=== PATIENT | female | born 1980 | race Caucasian/White ===

== ENCOUNTER → 2017-09-03 09:22 | Outpatient (CLI) | payer OTHER, SELFPAY ==
[2017-09-03 09:24] LABS: Adenovirus,PCR Not Detected (NotDetected); Bordetella Pertussis Not Detected (NotDetected); Chlamydophila Pneumoniae, PCR Not Detected (NotDetected); Coronavirus 229E Not Detected (NotDetected); Coronavirus NL63 Not Detected (NotDetected); Coronavirus OC43 Not Detected (NotDetected); Coronovirus HKU1,PCR Not Detected (NotDetected); Human Metapneumovirus Not Detected (NotDetected); Influenza A, PCR Not Detected (NotDetected); Influenza AH1, 2009 Not Detected (NotDetected); Influenza AH1, PCR Not Detected (NotDetected); Influenza AH3,PCR Not Detected (NotDetected); Influenza B, PCR Not Detected (NotDetected); Mycoplasma Pneumoniae, PCR Not Detected (NotDected); Parainfluenza 1, PCR Not Detected (NotDetected); Parainfluenza 2, PCR Not Detected (NotDetected); Parainfluenza 3, PCR Not Detected (NotDetected); Parainfluenza 4, PCR Not Detected (NotDetected); Respiratory Syncytial Virus Not Detected (NotDetected)
[2017-09-03 15:28] LABS: Rhinovirus/Enterovirus Detected (NotDetected)
== END ==
PROVIDERS: Visit Provider Nurse Practitioner Family
DX: R50.9 Fever, unspecified (principal); R05 Cough; J32.9 Chronic sinusitis, unspecified
CPT/HCPCS: 87486; 87581; 87633; 87798

== ENCOUNTER → 2018-03-06 09:28 | Outpatient (CLI) | payer OTHER, SELFPAY ==
--- NOTE | 2018-03-06 09:37 | XR_ITS ---
XR chest 2V HISTORY: Wheezing ITS.REASON: WHEEZES ORDERING PHYSICIAN: Renetta Valiente PATIENT AGE: 37 years COMPARISON: None FINDINGS: The cardiomediastinal silhouette and pulmonary vascularity are within normal limits. The lungs are clear without infiltrates, suspicious nodules, or pleural effusions. No acute bony abnormalities. IMPRESSION: Negative chest, no acute finding
[2018-03-06 10:08] LABS: Adenovirus,PCR Not Detected (NotDetected); Bordetella Pertussis Not Detected (NotDetected); Chlamydophila Pneumoniae, PCR Not Detected (NotDetected); Coronavirus 229E Not Detected (NotDetected); Coronavirus NL63 Not Detected (NotDetected); Coronavirus OC43 Not Detected (NotDetected); Coronovirus HKU1,PCR Not Detected (NotDetected); Human Metapneumovirus Not Detected (NotDetected); Influenza A, PCR Not Detected (NotDetected); Influenza AH1, 2009 Not Detected (NotDetected); Influenza AH1, PCR Not Detected (NotDetected); Influenza AH3,PCR Not Detected (NotDetected); Influenza B, PCR Not Detected (NotDetected); Mycoplasma Pneumoniae, PCR Not Detected (NotDected); Parainfluenza 1, PCR Not Detected (NotDetected); Parainfluenza 2, PCR Not Detected (NotDetected); Parainfluenza 3, PCR Not Detected (NotDetected); Parainfluenza 4, PCR Not Detected (NotDetected); Respiratory Syncytial Virus Not Detected (NotDetected); Rhinovirus/Enterovirus Not Detected (NotDetected)
== END ==
PROVIDERS: PCP Nurse Practitioner Family; Visit Provider Nurse Practitioner Family
DX: R06.2 Wheezing (principal)
CPT/HCPCS: 71046; 87486; 87581; 87633; 87798

== ENCOUNTER 2020-11-02 13:54 | Emergency (ER) | payer OTHER, SELFPAY ==
[2020-11-02] VITALS (9 sets, daily range): BP systolic 120–149; BP diastolic 65–81; PULSE 74–95; RESP 16–20; TEMP 36.6–36.8; O2SAT 96–98; BMI 36.8; BMI 36.5
--- NOTE | 2020-11-02 14:20 | HMH.EDUTC ---
[facility] – [place] Disposition Clinical Impression: Dehydration Syncope Qualifiers: Syncope type: unspecified Qualified Code(s): R55 - Syncope and collapse Disposition: Home, Self-Care Condition on Discharge: Good Instructions: DI for Syncope in Adults (Fainting) Additional Instructions: You have been evaluated for syncopal episode. Please stay hydrated. Eat a balanced diet. Follow-up with your primary care doctor. You may need to wear a Holter monitor. Return to the emergency department at once if you have any new or worsening symptoms, chest pain, palpitations, other concerns Referrals: Belkis Kwok [Primary Care Provider] - Time of Disposition: 14:27 Medical Decision Making - Jerald Inquiry Pt receiving controlled substance: No Jerald was queried for this patient: No Vital Signs: 11/02/20 13:55 11/02/20 14:25 11/02/20 14:35 Temperature 98.3 F 97.9 F Temperature Source Oral Oral Pulse Rate 86 Pulse Rate [Right Brachial] 89 95 H Respiratory Rate 19 18 20 Blood Pressure 133/74 Blood Pressure [Right Arm] 149/81 H 133/74 Blood Pressure Mean [Right Arm] 103 93 Blood Pressure Source Blood Pressure Source [Right Arm] Automatic Cuff Automatic Cuff Blood Pressure Position Blood Pressure Position [Right Arm] Sitting Sitting 02 Sat by Pulse Oximetry 98 96 97 Oxygen Delivery Method Room Air Room Air 11/02/20 15:00 11/02/20 15:30 11/02/20 16:00 Temperature Temperature Source Pulse Rate 84 82 84 Pulse Rate [Right Brachial] Respiratory Rate 18 18 18 Blood Pressure 122/68 120/65 125/68 Blood Pressure [Right Arm] Blood Pressure Mean [Right Arm] Blood Pressure Source Blood Pressure Source [Right Arm] Blood Pressure Position Blood Pressure Position [Right Arm] 02 Sat by Pulse Oximetry 96 97 96 Oxygen Delivery Method 11/02/20 16:30 11/02/20 17:10 11/02/20 17:21 Temperature 98.2 F Temperature Source Oral Pulse Rate 79 82 74 Pulse Rate [Right Brachial] Respiratory Rate 18 18 16 Blood Pressure 125/70 122/71 122/74 Blood Pressure [Right Arm] Blood Pressure Mean [Right Arm] Blood Pressure Source Automatic Cuff Blood Pressure Source [Right Arm] Blood Pressure Position Sitting Blood Pressure Position [Right Arm] 02 Sat by Pulse Oximetry 98 97 Oxygen Delivery Method Room Air - Lab Data Lab Results 11/02/20 14:43: WBC 14.0 H, RBC 5.09, Hgb 15.6, Hct 46.3, MCV 90.9, MCH 30.6, MCHC 33.7, RDW 14.1, Plt Count 311, MPV 7.7, Neut % (Auto) 73.4, Lymph % (Auto) 19.7, [place] % (Auto) 4.6, Eos % (Auto) 1.9, Baso % (Auto) 0.4, Neut # (Auto) 10.3 H, Lymph # (Auto) 2.8, [place] # (Auto) 0.7, Eos # (Auto) 0.3, Baso # (Auto) 0.1 11/02/20 14:43: Sodium 138, Potassium 3.8, Chloride 106, Carbon Dioxide 25, Anion Gap 10.8, BUN 12, Creatinine 1.10 H, Estimated Creat Clear 114, Estimated GFR 54 L, Est GFR ( Amer) 66, Glucose 102 H, Calcium 9.1, Total Bilirubin 0.4, AST 26, ALT 35, Alkaline Phosphatase 99, Troponin I < 0.01, Total Protein 7.5, Albumin 4.3, Globulin 3.2, Albumin/Globulin Ratio 1.3 11/02/20 14:43: Serum HCG, Qual Negative 11/02/20 15:53: Urine Color Yellow, Urine Appearance Clear, Urine pH 6.0, Ur Specific [place] 1.025, Urine Protein Negative, Urine Glucose (UA) Negative, Urine Ketones Negative, Urine Blood Negative, Urine Nitrate Negative, Urine Bilirubin Negative, Urine Urobilinogen 1.0, Ur Leukocyte Esterase Negative, Urine RBC None, Urine WBC None, Ur Squamous Epith Cells 3-5, Urine Bacteria None Result diagrams: 11/02/20 14:43 11/02/20 14:43 Orders (Tests/Meds): ED MEDICATIONS Discontinued Medications Generic Name Dose Route Start Last Admin Trade Name Freq PRN Reason Stop Dose Admin Sodium Chloride 1,000 mls @ 500 mls/hr 11/02/20 16:30 11/02/20 17:09 Sod Chlor 0.9% 1000ml Bag IV 12/02/20 16:29 500 mls/hr .Q2H JUVENAL Administration Medical Decision Narrative: Spoke with patient and with PCP PCP advised she was concerne
--- NOTE | 2020-11-02 14:21 | PC.NURSE ---
PATIENT TO ER PER Andrews ESPARZA APRN. REPORT GIVEN TO Dylan HERNANDEZ RN
--- NOTE | 2020-11-02 14:31 | XR_ITS ---
PROCEDURE: XR CHEST PORTABLE CLINICAL HISTORY: syncope COMPARISON: CR CXR2V XR chest 2V from 03/06/2018 CR XR CHEST 2V from 07/24/2019 FINDINGS: The cardiomediastinal silhouette and pulmonary vascularity are within normal limits. The lungs are clear without infiltrates, suspicious nodules, or pleural effusions. No acute bony abnormalities. IMPRESSION: No acute findings. Dictated by: Vaibhav Portillo MD 11/02/2020 15:17 Vaibhav Portillo MD in [place] 11/02/2020 15:17
--- NOTE | 2020-11-02 14:51 | ECG_ITS ---
APPROVED REPORT Exam: Resting ECG HR:86 bpm ECG Measurements Heart Rate 86 AXES MI 186 P 43 QRSd 80 QRS -6 QT 364 T 23 QTc 435 Conclusion Normal sinus rhythm Anteroseptal changes are old Abnormal ECG Electronically signed by : Fahad Beauchamp, 11/02/2020 21:58:46
[2020-11-02 14:54] LABS: Basophils # 0.1 K/mm3 (0-0.2); Basophils % 0.4 % (0.1-2.0); Eosinophils # 0.3 K/mm3 (0.0-0.4); Eosinophils % 1.9 % (0.1-12.0); Hematocrit 46.3 % (37.0-47.0); Hemoglobin 15.6 g/dL (12.2-16.2); Lymphocytes # 2.8 K/mm3 (0.7-4.5); Lymphocytes % 19.7 % (10-50); Mean Corpuscular HGB Conc 33.7 g/dL (31.8-35.4); Mean Corpuscular Hemoglobin 30.6 pg (27.0-31.2); Mean Corpuscular Volume 90.9 fl (81-99); Mean Platelet Volume 7.7 fl (7.4-10.4); Monocytes # 0.7 K/mm3 (0.1-1.0); Monocytes % 4.6 % (1.7-9.3); Neutrophils # 10.3 K/mm3 (1.8-7.8); Neutrophils % 73.4 % (37.0-80.0); Platelet Count 311 K/mm3 (142-424); Red Blood Count 5.09 M/mm3 (4.20-5.40); Red Cell Distribution Width 14.1 % (11.5-17.5)
--- NOTE | 2020-11-02 14:59 | HMH.EDGENADL ---
ED Disposition Clinical Impression: Dehydration Syncope Qualifiers: Syncope type: unspecified Qualified Code(s): R55 - Syncope and collapse Disposition: Home, Self-Care Condition on Discharge: Good Instructions: DI for Syncope in Adults (Fainting) Additional Instructions: You have been evaluated for syncopal episode. Please stay hydrated. Eat a balanced diet. Follow-up with your primary care doctor. You may need to wear a Holter monitor. Return to the emergency department at once if you have any new or worsening symptoms, chest pain, palpitations, other concerns Referrals: Belkis Kwok [Primary Care Provider] - Time of Disposition: 17:13 - Critical Care Critical Care Time: No Attestation: On 11/02/20, the high probability of a clinically significant, sudden or life threatening deterioration of the following system(s) required my full and direct attention, intervention and personal management. The time I documented below is in addition to time spent performing reported procedures but includes the following listed in this critical care notation. Medical Decision Making - Medical Records Medical records reviewed: Yes: I reviewed the patient's medical records. - Jerald Inquiry Pt receiving controlled substance: No Vital Signs: 11/02/20 13:55 11/02/20 14:35 Temperature 98.3 F 97.9 F Temperature Source Oral Oral Pulse Rate [Right Brachial] 89 95 H Respiratory Rate 19 20 Blood Pressure [Right Arm] 149/81 H 133/74 Blood Pressure Mean [Right Arm] 103 93 Blood Pressure Source [Right Arm] Automatic Cuff Automatic Cuff Blood Pressure Position [Right Arm] Sitting Sitting 02 Sat by Pulse Oximetry 98 97 Oxygen Delivery Method Room Air Room Air - Lab Data Lab Results 11/02/20 14:43: WBC 14.0 H, RBC 5.09, Hgb 15.6, Hct 46.3, MCV 90.9, MCH 30.6, MCHC 33.7, RDW 14.1, Plt Count 311, MPV 7.7, Neut % (Auto) 73.4, Lymph % (Auto) 19.7, [place] % (Auto) 4.6, Eos % (Auto) 1.9, Baso % (Auto) 0.4, Neut # (Auto) 10.3 H, Lymph # (Auto) 2.8, [place] # (Auto) 0.7, Eos # (Auto) 0.3, Baso # (Auto) 0.1 11/02/20 14:43: Sodium 138, Potassium 3.8, Chloride 106, Carbon Dioxide 25, Anion Gap 10.8, BUN 12, Creatinine 1.10 H, Estimated Creat Clear 114, Estimated GFR 54 L, Est GFR ( Amer) 66, Glucose 102 H, Calcium 9.1, Total Bilirubin 0.4, AST 26, ALT 35, Alkaline Phosphatase 99, Troponin I < 0.01, Total Protein 7.5, Albumin 4.3, Globulin 3.2, Albumin/Globulin Ratio 1.3 11/02/20 14:43: Serum HCG, Qual Negative 11/02/20 15:53: Urine Color Yellow, Urine Appearance Clear, Urine pH 6.0, Ur Specific [place] 1.025, Urine Protein Negative, Urine Glucose (UA) Negative, Urine Ketones Negative, Urine Blood Negative, Urine Nitrate Negative, Urine Bilirubin Negative, Urine Urobilinogen 1.0, Ur Leukocyte Esterase Negative, Urine RBC None, Urine WBC None, Ur Squamous Epith Cells 3-5, Urine Bacteria None Result diagrams: 11/02/20 14:43 11/02/20 14:43 Orders (Tests/Meds): ED MEDICATIONS Generic Name Dose Route Start Last Admin Trade Name Freq PRN Reason Stop Dose Admin Sodium Chloride 1,000 mls @ 500 mls/hr 11/02/20 16:30 11/02/20 17:09 Sod Chlor 0.9% 1000ml Bag IV 12/02/20 16:29 500 mls/hr .Q2H JUVENAL Administration ORDERS Category Date Time Status Troponin I Q3H Lab 11/02/20 17:45 Ordered Troponin I Q3H Lab 11/02/20 20:45 Ordered EKG Request [ECG Request by /Becki] Stat Y 11/02/20 14:31 Ordered - ECG Data Tracing #1 Sinus rhythm with ventricular rate of 86 bpm. QRS 80, QTc 435. ST segment flattening in V1, V3. No reciprocal elevation or other changes. Medical Decision Narrative: In summary this is a 40-year-old female presenting to the emergency department after a syncopal episode. Patient clinically stable on arrival. Vital signs within normal limits. Concern for vasovagal syncope, dehydration, lightheadedness, arrhythmia. Will obtain CBC, CMP, chest x-ray, EKG, troponin profile, urinalysis. EKG show
[2020-11-02 15:00] LABS: Chloride 106 mmol/L (98-107)
[2020-11-02 15:01] LABS: Potassium 3.8 mmoL/L (3.5-5.1); Sodium 138 mmol/L (136-145)
[2020-11-02 15:03] LABS: Alanine Aminotransferase 35 U/L (12-78); Aspartate Amino Transferase 26 U/L (14-36); Blood Urea Nitrogen 12 mg/dl (7-17); Creatinine Clearance Estimated 114 mL/min (50-200); Estimated Glomerular Filt Rate 54 ml/min (>60); GFR (African American) 66 ML/MIN (>60)
[2020-11-02 15:04] LABS: Albumin Level 4.3 g/dl (3.5-5.0); Albumin/Globulin Ratio 1.3 (1.1-1.8); Alkaline Phosphatase 99 U/L (38-126); Anion Gap 10.8 mEq/L (5-15); Bilirubin,Total 0.4 mg/dl (0.2-1.3); Calcium 9.1 mg/dl (8.4-10.2); Carbon Dioxide 25 mmol/L (22.0-30.0); Globulin 3.2 g/dL (1.3-3.2); Glucose 102 mg/dl (74-100); Total Protein,Serum 7.5 g/dl (6.3-8.2)
[2020-11-02 15:16] LABS: HCG Qualitative, Serum Negative (Negative)
[2020-11-02 15:28] LABS: Troponin I < 0.01 ng/ml (0.00-0.034)
[2020-11-02 15:57] LABS: Microscopic, Urine URINE MICROSCOPIC (MICROSCOPIC)
[2020-11-02 16:01] LABS: Appearance,Urine CLEAR (Clear); Bilirubin,Urine Negative (Negative); Blood, Urine Negative (Negative); Color,Urine YELLOW (Yellow); Glucose,Urine (UA) Negative (Negative); Ketones,Urine Negative (Negative); Leukocyte Esterase,Urine Negative (Negative); Nitrate,Urine Negative (Negative); Protein,Urine Negative (Negative); Specific Gravity, Urine 1.025 (1.005-1.030)
== END 2020-11-02 17:22 | disposition home or self-care (01) ==
LOC: UTC 13:57 → ER 14:24
PROVIDERS: Emergency Provider Emergency Medicine; PCP Nurse Practitioner Family
DX: E86.0 Dehydration (principal); R55 Syncope and collapse; F17.210 Nicotine dependence, cigarettes, uncomplicated
CPT/HCPCS: 71045; 80053; 81001; 84484; 84703; 85025; 93005; 96365; 99283

== ENCOUNTER 2021-05-23 18:12 | Emergency (ER) | payer OTHER, SELFPAY ==
[2021-05-23 20:00] VITALS: BP 142/85; PULSE 94; RESP 20; TEMP 36.8; O2SAT 98; BMI 38.5
--- NOTE | 2021-05-23 20:37 | HMH.EDUTC ---
[facility] [place] Impression: Bronchitis Disposition: Home, Self-Care Condition on Discharge: Good Instructions: Acute Bronchitis, Prednisone, Azithromycin Additional Instructions: ? Start antibiotic today. Be sure to complete entire prescription even if feeling better ? Monitor temp. Tylenol every 4 hours as needed and / or ibuprofen every 6 hours as needed ( As long as your primary care physician has told you that it ok to take both. For fever/aches/pains ER if no less than 101 despite Tylenol or Motrin ? Humidifier/vaporizer or hot steamy shower ? Inhaler every 4-6 hours as needed like we discussed. If unsure how to use it, ask pharmacist to demonstrate how. Should help open airways and improve cough, wheezing, and shortness of breath ? Mucinex during the day for your cough and cough suppressant only at night. Be sure to drink lots of water. Insurance may not cover a prescriptions for mucinex. Might be cheaper to get 400mg tablets and take 2 tablet in the morning, mid-day and evening with lots of water. *Promethazine DM cough syrup will cause drowsiness. Use only at night. No driving, operating machinery or caring for small children after taking it *Tessalon Perles will not cause drowsiness but use at bedtime to help stop cough so that you may get some rest. *Start steroid today. Helps with inflammation therefore, cough and wheezing. Follow directions on the package. Reviewed side effects. Patient reports taking them before. Follow up IMMEDIATELY for new or worsening of symptoms OR no noticeable improvement over the next 48-72 hours. 911 immediately for any life threatening symptoms such as chest pain or difficulty breathing Prescriptions: Benzonatate [Benzonatate 100mg cap] 100 mg PO Q8HP PRN #15 cap PRN Reason: Cough Transmission Status: Received by [facility] predniSONE [Prednisone 20mg Tab] 20 mg PO BID #10 tab Transmission Status: Received by [facility] Azithromycin [Z-Tj 250mg Tab] 250 mg PO DIRECTED #6 tab Transmission Status: Received by [facility] Referrals: Belkis Kwok [Primary Care Provider] - As needed Time of Disposition: 20:51 Medical Decision Making - Jerald Inquiry Pt receiving controlled substance: No Jerald was queried for this patient: No Vital Signs: 05/23/21 20:00 05/23/21 20:58 Temperature 98.3 F 98.3 F Temperature Source Oral Pulse Rate 94 H Pulse Rate [Right Brachial] 94 H Respiratory Rate 20 20 Blood Pressure 142/85 H Blood Pressure [Right Arm] 142/85 H Blood Pressure Mean [Right Arm] 104 Blood Pressure Source [Right Arm] Automatic Cuff Blood Pressure Position [Right Arm] Sitting 02 Sat by Pulse Oximetry 98 Oxygen Delivery Method Room Air Orders (Tests/Meds): ED MEDICATIONS Discontinued Medications Generic Name Dose Route Start Last Admin Trade Name Nicole PRN Reason Stop Dose Admin Ceftriaxone Sodium 1 gm 05/23/21 20:44 05/23/21 20:57 Ceftriaxone 1gm Vial IM 05/23/21 20:45 1 gm ONCE ONE Administration Lidocaine HCl 0 ml 05/23/21 20:44 05/23/21 20:57 Lidocaine 1% 5ml Pf Vial IM 05/23/21 20:45 2 ml ONCE ONE Administration ORDERS Category Date Time Status Covid-19 Nasal PCR ([facility]) Routine Lab 05/23/21 20:48 Received Medical Decision Narrative: Patient states that she has taken both azithromycin and Prednisone in the past without complications or reactions [facility] [place] - General Stated complaint: covid test,coguh,SOB,kemi Time Seen by Provider: 05/23/21 20:37 Mode of Arrival: Ambulatory Source of Information: Patient Limitations: No Limitations Description of Symptoms (Recalled from Triage Doc. by RN): PATIENT C/O COUGH AND CHEST CONGESTION X 2 DAYS HEENT Symptoms (Recalled from RN notes): Yes Resp Symptoms (Recalled from RN notes): Yes Skin Symptoms (Recalled from RN notes): No MS Symptoms (Recalled from RN notes): No Functional Status (Recalled from RN notes): WNL - Histo
[2021-05-23 20:58] VITALS: BP 142/85; PULSE 94; RESP 20; TEMP 36.8; O2SAT 98
== END 2021-05-23 21:02 | disposition home or self-care (01) ==
PROVIDERS: Emergency Provider Nurse Practitioner; PCP Nurse Practitioner Family
DX: J20.9 Acute bronchitis, unspecified (principal); F17.210 Nicotine dependence, cigarettes, uncomplicated; Z20.822 Contact with and (suspected) exposure to COVID-19
CPT/HCPCS: 96372; 99202; C9803; G0463; U0003; U0005

== ENCOUNTER 2022-05-06 15:43 | Emergency (ER) | payer OTHER, SELFPAY ==
[2022-05-06 16:05] VITALS: BP 141/86; PULSE 91; RESP 19; TEMP 36.8; O2SAT 98; BMI 36.5
[2022-05-06 16:12] LABS: Coronavirus 19, PCR Not Detected (NotDetected); Influenza A, PCR Not Detected (NotDetected); Influenza B, PCR Not Detected (NotDetected)
--- NOTE | 2022-05-06 16:23 | EXP.UTC ---
Discharge Plan Disposition Patient Disposition: Home, Self-Care Prescriptions Prescriptions: New azithromycin [azithromycin] 250 mg tablet 250 mg PO DIRECTED Qty: 6 0RF Rx Instructions: Take two (2) tablets on day #1, then one (1) tablet day #2 thru #5 fluticasone propionate [fluticasone propionate] 50 mcg/actuation spray,suspension 1 spray intranasal DAILY Qty: 9.9 0RF Rx Instructions: 1 spray each nostril daily No Action amitriptyline 50 MG tablet 50 mg PO DAILY lorazepam 1 MG tablet 1 mg PO DAILY azithromycin 250 MG tablet 250 mg PO DIRECTED Qty: 6 0RF Rx Instructions: Take two (2) tablets on day #1, then one (1) tablet day #2 thru #5 prednisone 20 MG tablet 20 mg PO BID Qty: 10 0RF benzonatate 100 MG capsule 100 mg PO Q8HP PRN (Reason: Cough) Qty: 15 0RF Referrals Follow up/Referrals: Belkis Kwok [Primary Care Provider] - See instructions Activity Restrictions/Add. Instructions Additional Instructions/Restrictions: Start antibiotic patient to take as ordered for a full length of time even if you feel better. Sinus infections do not get better overnight. It may take 2-3 days to notice much improvement so be sure to use conservative measures as discussed for symptoms. Flonase 1 spray each nostril daily to help with nasal congestion, sinus and ear pressure/information Increase fluids Humidifier/vaporizer as needed Tylenol and ibuprofen as needed for fever or pain. If symptoms do not improve or get worse return or be seen in the ER Follow-up with primary care this week Clinical Impressions Clinical Impression: Acute maxillary sinusitis Instructions Patient Instructions: DI for Sinusitis Discharge ED Provider: Jimi ([facility])Kayley [facility] [place] HPI General Stated complaint: chills, kemi Mode of Arrival: Ambulatory Source of Information: Patient Limitations: No Limitations Time Seen by Provider: 05/06/22 16:15 Description of Symptoms (Recalled from Triage Doc. by RN): PATIENT C/O FEVER, CHILLS, AND SINUS PRESSURE X 2 DAYS HEENT Symptoms (Recalled from RN notes): Yes Resp Symptoms (Recalled from RN notes): No Skin Symptoms (Recalled from RN notes): No MS Symptoms (Recalled from RN notes): No Functional Status (Recalled from RN notes): WNL History of Present Illness Provider Complaint: 41 yr old female presents for nasal congestion, sinus pressure and pain, dizziness, fever and chills for 2 days Related Data Home Medications Medication Instructions Recorded Confirmed amitriptyline 50 mg tablet 50 mg PO DAILY Depression 05/23/21 05/23/21 lorazepam 1 mg tablet 1 mg PO DAILY Anxiety 05/23/21 05/23/21 Previous Rx's Medication Instructions Recorded azithromycin 250 mg tablet 250 mg PO DIRECTED #6 tabs 05/23/21 benzonatate 100 mg capsule 100 mg PO Q8HP PRN Cough #15 caps 05/23/21 prednisone 20 mg tablet 20 mg PO BID #10 tabs 05/23/21 azithromycin 250 mg tablet 250 mg PO DIRECTED #6 tabs 05/06/22 fluticasone propionate 50 1 spray intranasal DAILY #9.9 mL 05/06/22 mcg/actuation nasal spray,suspension Allergies Allergy/AdvReac Type Severity Reaction Status Date / Time aspirin [ASPIRIN] Allergy Unknown Verified 11/02/20 14:17 Worker's Comp Is this a Worker's Comp case?: No [facility] Disclaimer: The information contained in this section may have been updated after the patient was seen, as this information can be updated by other users. Medical History , [employer]) Anxiety Depression Encounter for tubal ligation Surgical History , [employer]) History of cholecystectomy History of hysterectomy Social History , [employer]) Smoking Status: Current every day smoker tobacco type: cigarettes packs per day: 1 alcohol intake: never current occupational status: other Travel in the ar
[2022-05-06 16:29] VITALS: BP 141/86; PULSE 91; RESP 19; TEMP 36.8; O2SAT 98
== END 2022-05-06 16:42 | disposition home or self-care (01) ==
PROVIDERS: Emergency Provider Nurse Practitioner Family; PCP Nurse Practitioner Family
DX: J01.00 Acute maxillary sinusitis, unspecified (principal)
CPT/HCPCS: 99212; C9803; G0463; U0003; U0005

== ENCOUNTER 2022-10-15 08:02 | Emergency (ER) | payer OTHER, SELFPAY ==
[2022-10-15 08:15] VITALS: BP 146/80; PULSE 86; RESP 18; TEMP 36.8; O2SAT 98; BMI 37.4
--- NOTE | 2022-10-15 08:17 | EXP.UTC ---
Discharge Plan Disposition Patient Disposition: Home, Self-Care Condition: Good Prescriptions Prescriptions: New azithromycin [Zithromax] 250 mg tablet 250 mg PO UD DOSE PK Qty: 6 0RF Rx Instructions: Take two (2) tablets today, then one (1) tablet days #2 thru #5 benzonatate [benzonatate] 100 mg capsule 100 mg PO TIDP PRN (Reason: Cough) Qty: 30 0RF methylprednisolone 4 mg Tablets,Dose Pack 4 mg PO DIRECTED Qty: 21 0RF No Action amitriptyline 50 MG tablet 50 mg PO DAILY lorazepam 1 MG tablet 1 mg PO DAILY fluticasone propionate [fluticasone propionate] 50 mcg/actuation spray,suspension 1 spray intranasal DAILY Qty: 9.9 0RF Rx Instructions: 1 spray each nostril daily Referrals Follow up/Referrals: Belkis Kwok [Primary Care Provider] - See instructions Activity Restrictions/Add. Instructions Additional Instructions/Restrictions: Drink plenty of fluids. Take tylenol or ibuprofen for pain or fever. Take the medications as directed. Follow up with your regular doctor. GO TO THE ER FOR ANY WORSENING SYMPTOMS Don't start the oral steroids until tomorrow, since you had the shot here today. Clinical Impressions Clinical Impression: Bronchitis, Sinus infection Stand Alone Forms Stand Alone Forms: Work/School Release Instructions Patient Instructions: Sinusitis, DI for Sinusitis Discharge ED [place] Ricardo Morejon [facility] [place] General Stated complaint: Congestion,Cough Time Seen by Provider: 10/15/22 08:16 History of Present Illness Provider Complaint: She c/o sinus congestion and chest congestion for the past 7 days. She has a productive cough with yellowish sputum noted. She denies fever. She has had nausea and diarrhea. Related Data Home Medications Medication Instructions Recorded Confirmed amitriptyline 50 mg tablet 50 mg PO DAILY Depression 05/23/21 10/15/22 lorazepam 1 mg tablet 1 mg PO DAILY Anxiety 05/23/21 10/15/22 Previous Rx's Medication Instructions Recorded fluticasone propionate 50 1 spray intranasal DAILY #9.9 mL 05/06/22 mcg/actuation nasal spray,suspension azithromycin 250 mg tablet 250 mg PO UD DOSE PK #6 tabs 10/15/22 (Zithromax) benzonatate 100 mg capsule 100 mg PO TIDP PRN Cough #30 caps 10/15/22 methylprednisolone 4 mg tablets in 4 mg PO DIRECTED #21 tabs 10/15/22 a dose pack Allergies Allergy/AdvReac Type Severity Reaction Status Date / Time aspirin [ASPIRIN] Allergy Unknown Verified 10/15/22 08:28 [facility] Disclaimer: The information contained in this section may have been updated after the patient was seen, as this information can be updated by other users. Medical History Anxiety Depression Encounter for tubal ligation Surgical History History of cholecystectomy History of hysterectomy Social History Smoking Status: Current every day smoker tobacco type: cigarettes packs per day: 1 alcohol intake: never current occupational status: other Travel in the last 8 weeks: None ROS Obtained: Yes All systems reviewed & no additional complaints except as documented Constitutional Constitutional: Reports poor appetite Eyes Eyes: Reports system reviewed and no additional complaints, except as documented ENT Ears, Nose, Mouth, and Throat: Reports as per HPI Cardiovascular Cardiovascular: Reports system reviewed and no additional complaints, except as documented and Denies chest pain Respiratory Respiratory: Denies shortness of breath, Denies chest congestion, Reports cough, Denies stridor and Denies wheezing Gastrointestinal Gastrointestingal: Reports system reviewed and no additional complaints, except as documented; Denies abdominal pain, diarrhea or vomiting Musculoskeletal Musculoskeletal: Reports system reviewed and n
[2022-10-15 08:55] VITALS: BP 146/80; PULSE 86; RESP 18; TEMP 36.8; O2SAT 98
== END 2022-10-15 08:55 | disposition home or self-care (01) ==
PROVIDERS: Emergency Provider Nurse Practitioner Family; PCP Nurse Practitioner Family
DX: J20.9 Acute bronchitis, unspecified (principal); J01.90 Acute sinusitis, unspecified; F17.210 Nicotine dependence, cigarettes, uncomplicated; F41.9 Anxiety disorder, unspecified; F32.9 Major depressive disorder, single episode, unspecified
CPT/HCPCS: 96372; 99212; 99214; G0463; J0696

== ENCOUNTER 2022-12-03 10:16 | Emergency (ER) | payer OTHER, SELFPAY ==
[2022-12-03 10:40] VITALS: BP 143/92; PULSE 91; RESP 18; TEMP 37.2; O2SAT 99; BMI 37.7
--- NOTE | 2022-12-03 10:51 | EXP.UTC ---
Discharge Plan Disposition Patient Disposition: Home, Self-Care Condition: Good Prescriptions Prescriptions: New methylprednisolone [Medrol (Tj)] 4 mg tablets,dose pack See Rx Instructions .Route .COMPLEX 6 Days Qty: 21 0RF Rx Instructions: taper pack; amoxicillin-pot clavulanate 875-125 mg Tablet 1 tab PO Q12H Qty: 20 0RF benzonatate 100 mg capsule 100 mg PO TID PRN (Reason: cough) Qty: 30 0RF No Action amitriptyline 50 MG tablet 50 mg PO DAILY lorazepam 1 MG tablet 1 mg PO DAILY losartan 25 mg tablet 25 mg PO DAILY Patient Comments: TAKE ONE TABLET BY MOUTH EVERY DAY Referrals Follow up/Referrals: Belkis Kwok [Primary Care Provider] - See instructions Activity Restrictions/Add. Instructions Additional Instructions/Restrictions: *Monitor Temp, Over the counter Motrin or Tylenol as directed/as needed Tylenol every 4 hours and Motrin every 6 hours (as long as your family doctor has told you that you can take it) for fever or pain. and straight to ER if unable to lower temp less than 101.0 after medication given *Warm salt water gargles may help to soothe the throat *Throat Lozenges? *Warm fluids like tea with honey may help to soothe the throat? *Sleep elevated *Humidifier/Vaporizer Take medication as prescribed Your throat swab was sent for culture. Those results are typically sent to your primary care. Be sure to follow up in 2-3 days with your family doctor/primary care physician if no improvement so they can review those result and treat if necessary. If you don?t have a primary care doctor, I recommend you get one but in the mean time, you will have to return to a walk in clinic Follow up IMMEDIATELY for new or worsening symptoms or no Noticeable improvement over the next 48-72 hours. 911 for difficulty breathing or swallowing Clinical Impressions Clinical Impression: Sinus infection Qualifiers: Sinusitis location: unspecified location Chronicity: unspecified Qualified Code(s): J32.9 - Chronic sinusitis, unspecified Stand Alone Forms Stand Alone Forms: Work/School Release Instructions Patient Instructions: Sinusitis, DI for Sinusitis, Amoxicillin and Clavulanic Acid Discharge ED Provider[place] Priya Cavanaugh [facility] [place] General Stated complaint: sore throat, congestion, h/a Mode of Arrival: Ambulatory Source of Information: Patient Limitations: No Limitations Time Seen by Provider: 12/03/22 10:51 Description of Symptoms (Recalled from Triage Doc. by RN): PATIENT C/O HEAD CONGESTION, SORE THROAT, AND EAR/SINUS PRESSURE X 3 DAYS HEENT Symptoms (Recalled from RN notes): Yes Resp Symptoms (Recalled from RN notes): No Skin Symptoms (Recalled from RN notes): No MS Symptoms (Recalled from RN notes): No Functional Status (Recalled from RN notes): WNL History of Present Illness Provider Complaint: Patient states that she has been having sinus pain and pressure, sore throat, drainage in the back of her throat and pain with swallowing for about 3 days that has continued to get worse and having pressure like feeling in her ears States that today when she didnt feel any better she came in to get checked Related Data Home Medications Medication Instructions Recorded Confirmed amitriptyline 50 mg tablet 50 mg PO DAILY Depression 05/23/21 12/03/22 lorazepam 1 mg tablet 1 mg PO DAILY Anxiety 05/23/21 12/03/22 losartan 25 mg tablet 25 mg PO DAILY Hypertension 12/03/22 12/03/22 Previous Rx's Medication Instructions Recorded amoxicillin 875 mg-potassium 1 tab PO Q12H #20 tabs 12/03/22 clavulanate 125 mg tablet benzonatate 100 mg capsule 100 mg PO TID PRN cough #30 caps 12/03/22 methylprednisolone 4 mg tablets in See Rx Instructions .Route 12/03/22 a dose pack (Medrol (Tj)) .COMPLEX 6 days #21 tabs Allergies Allergy/AdvReac Type Severity Reaction Status Date / Time aspirin [ASPIRIN] Allergy Unknown Verified
[2022-12-03 11:03] VITALS: BP 143/92; PULSE 91; RESP 18; TEMP 37.2; O2SAT 99
[2022-12-03 11:03] LABS: UTC Strep Screen (Rapid) Negative (Negative)
== END 2022-12-03 11:07 | disposition home or self-care (01) ==
PROVIDERS: Emergency Provider Nurse Practitioner; PCP Nurse Practitioner Family
DX: J01.90 Acute sinusitis, unspecified (principal); F17.210 Nicotine dependence, cigarettes, uncomplicated; F41.9 Anxiety disorder, unspecified; F32.A Depression, unspecified
CPT/HCPCS: 87880; 99212; 99214; G0463

== ENCOUNTER 2023-05-18 19:32 | Emergency (ER) | payer OTHER, SELFPAY ==
[2023-05-18 19:33] VITALS: BP 105/80; PULSE 93; RESP 16; TEMP 36.7; O2SAT 95; BMI 38.9
--- NOTE | 2023-05-18 19:38 | PC.NURSE ---
in room talking with patient at this time.
[2023-05-18 19:39] VITALS: BP 105/80; PULSE 124; O2SAT 100
--- NOTE | 2023-05-18 19:40 | CT_ITS ---
PROCEDURE INFORMATION: Exam: CT Abdomen And Pelvis With Contrast Exam date and time: 05/18/2023 8:22 PM Age: 42 years old Clinical indication: Abdominal pain; Additional info: Rlq pain TECHNIQUE: Imaging protocol: Computed tomography of the abdomen and pelvis with contrast. Radiation optimization: All CT scans at this facility use at least one of these dose optimization techniques: automated exposure control; mA and/or kV adjustment per patient size (includes targeted exams where dose is matched to clinical indication); or iterative reconstruction. Contrast material: ISOVUE; Contrast volume: 75 ml; Contrast route: IV; REPORTING DATA: Count of CT and Cardiac NM exams in prior 12 months: This patient has received 0 known CTs and 0 known cardiac nuclear medicine studies in the 12 months prior to the current study. COMPARISON: CR XR CHEST PORTABLE 11/02/2020 2:58 PM FINDINGS: Liver: Normal. No mass. Gallbladder and bile ducts: Postsurgical changes of cholecystectomy. Pancreas: Normal. No ductal dilation. Spleen: Normal. No splenomegaly. Adrenal glands: Normal. No mass. Kidneys and ureters: Normal. No hydronephrosis. Stomach and bowel: Unremarkable. No obstruction. No mucosal thickening. Appendix: No evidence of appendicitis. Intraperitoneal space: Unremarkable. No free air. No significant fluid collection. Vasculature: Mild atherosclerotic changes of the abdominal aorta and iliac arteries without aneurysmal dilatation. Lymph nodes: Unremarkable. No enlarged lymph nodes. Urinary bladder: Unremarkable as visualized. Reproductive: Unremarkable as visualized. Bones/joints: Mild degenerative changes. No acute fracture. Soft tissues: Tiny fat containing umbilical hernia. IMPRESSION: No acute findings. No evidence of acute appendicitis.
--- NOTE | 2023-05-18 19:42 | HMH.EDGENADL ---
Discharge Plan Disposition Patient Disposition: Home, Self-Care Chief Complaint: Abdominal Pain Prescriptions Prescriptions: No Action amitriptyline 50 MG tablet 50 mg PO DAILY lorazepam 1 MG tablet 1 mg PO DAILY losartan 25 mg tablet 25 mg PO DAILY Patient Comments: TAKE ONE TABLET BY MOUTH EVERY DAY methylprednisolone [Medrol (Tj)] 4 mg tablets,dose pack See Rx Instructions .Route .COMPLEX 6 Days Qty: 21 0RF Rx Instructions: taper pack; amoxicillin-pot clavulanate 875-125 mg Tablet 1 tab PO Q12H Qty: 20 0RF benzonatate 100 mg capsule 100 mg PO TID PRN (Reason: cough) Qty: 30 0RF Referrals Follow up/Referrals: Belkis Kwok [Primary Care Provider] - See instructions Activity Restrictions/Add. Instructions Additional Instructions/Restrictions: At this time it was felt you are safe to be discharged home. If new or worsening symptoms please do not hesitate to return the emergency department. If symptoms persist please follow-up with your family doctor as you are able. Clinical Impressions Clinical Impression: Abdominal pain Instructions Patient Instructions: DI for Acute Abdominal Pain Discharge ED Provider: Vinny Wilson General Adult HPI General Chief complaint: Abdominal Pain Stated complaint: lower rt abdominal pain Time Seen by Provider: 05/18/23 19:37 History of Present Illness HPI narrative: Patient is a 42-year-old female past medical history of hypertension, previous hysterectomy, previous left oophorectomy, previous cholecystectomy who presents emergency department for evaluation of right lower quadrant abdominal pain. Onset was acute, 48 hours ago, persistent and nonmodifiable. No vomiting, associated nausea is present. There is associated dysuria. No other acute complaints at this time. Related Data Home Medications Medication Instructions Recorded Confirmed amitriptyline 50 mg tablet 50 mg PO DAILY Depression 05/23/21 12/03/22 lorazepam 1 mg tablet 1 mg PO DAILY Anxiety 05/23/21 12/03/22 losartan 25 mg tablet 25 mg PO DAILY Hypertension 12/03/22 12/03/22 Previous Rx's Medication Instructions Recorded amoxicillin 875 mg-potassium 1 tab PO Q12H #20 tabs 12/03/22 clavulanate 125 mg tablet benzonatate 100 mg capsule 100 mg PO TID PRN cough #30 caps 12/03/22 methylprednisolone 4 mg tablets in See Rx Instructions .Route 12/03/22 a dose pack (Medrol (Tj)) .COMPLEX 6 days #21 tabs Allergies Allergy/AdvReac Type Severity Reaction Status Date / Time aspirin [ASPIRIN] Allergy Unknown Verified 10/15/22 08:28 [facility] Disclaimer: The information contained in this section may have been updated after the patient was seen, as this information can be updated by other users. Medical History Anxiety Depression Encounter for tubal ligation Surgical History History of cholecystectomy History of hysterectomy Social History Smoking Status: Former smoker tobacco type: cigarettes packs per day: 1 alcohol intake: never current occupational status: other Travel in the last 8 weeks: None ROS Obtained: Yes Systems reviewed as appropriate & no additional complaints except as documented Physical Exam General General appearance: alert and in no apparent distress Head Head exam: atraumatic and normocephalic Eye Eye exam: Present PERRL and EOMI ENT ENT exam: Present mucous membranes moist Neck Neck exam: Present normal inspection Chest Chest inspection: Present normal inspection and symmetric chest wall rise Respiratory Respiratory exam: Present normal lung sounds bilaterally; Absent respiratory distress Cardiovascular Cardiovascular exam: Present regular rate and normal rhythm Abdominal Exam Abdominal exam: Present soft; Absent tenderness Extremities Exam Extremiti
[2023-05-18 19:44] LABS: Microscopic, Urine URINE MICROSCOPIC (MICROSCOPIC)
[2023-05-18 19:52] LABS: Appearance,Urine CLEAR (Clear); Bilirubin,Urine Negative (Negative); Blood, Urine Negative (Negative); Color,Urine YELLOW (Yellow); Glucose,Urine (UA) Negative (Negative); Ketones,Urine Negative (Negative); Leukocyte Esterase,Urine Negative (Negative); Nitrate,Urine Negative (Negative); PH,Urine 6.5 (5.0-8.5); Protein,Urine Negative (Negative); Urobilinogen,Urine 0.2 EU/dl (0.2)
[2023-05-18 19:56] LABS: Basophils # 0.1 K/mm3 (0-0.2); Basophils % 0.8 % (0.1-2.0); Eosinophils # 0.2 K/mm3 (0.0-0.4); Eosinophils % 1.8 % (0.1-12.0); Hematocrit 46.3 % (37.0-47.0); Hemoglobin 15.4 g/dL (12.2-16.2); Lymphocytes # 2.7 K/mm3 (0.7-4.5); Lymphocytes % 22.3 % (10-50); Mean Corpuscular HGB Conc 33.2 g/dL (31.8-35.4); Mean Corpuscular Hemoglobin 31.3 pg (27.0-31.2); Mean Corpuscular Volume 94.4 fl (81-99); Mean Platelet Volume 7.4 fl (7.4-10.4); Monocytes # 0.5 K/mm3 (0.1-1.0); Monocytes % 4.4 % (1.7-9.3); Neutrophils # 8.6 K/mm3 (1.8-7.8); Neutrophils % 70.7 % (37.0-80.0); Platelet Count 308 K/mm3 (142-424); Red Cell Distribution Width 14.1 % (11.5-17.5); White Blood Count 12.2 K/mm3 (4.8-10.8)
[2023-05-18 20:01] VITALS: BP 120/77; PULSE 108; O2SAT 99
[2023-05-18 20:03] LABS: Chloride 102 mmol/L (98-107); Sodium 137 mmol/L (136-145)
[2023-05-18 20:04] LABS: Potassium 4.1 mmoL/L (3.5-5.1)
[2023-05-18 20:06] LABS: Alanine Aminotransferase 58 U/L (12-78); Alkaline Phosphatase 129 U/L (38-126); Anion Gap 10.1 mEq/L (5-15); Aspartate Amino Transferase 34 U/L (14-36); Bilirubin,Total 0.4 mg/dl (0.2-1.3); Blood Urea Nitrogen 10 mg/dl (7-17); Carbon Dioxide 29 mmol/L (22.0-30.0); Creatinine Clearance Estimated 120 mL/min (50-200); Estimated Glomerular Filt Rate 54 ml/min (>60); GFR (African American) 65 ML/MIN (>60)
[2023-05-18 20:07] LABS: Albumin/Globulin Ratio 1.3 (1.1-1.8); Calcium 9.1 mg/dl (8.4-10.2); Globulin 3.2 g/dL (1.3-3.2); Glucose 95 mg/dl (74-100); Lipase 61 U/L (23-300); Total Protein,Serum 7.2 g/dl (6.3-8.2)
--- NOTE | 2023-05-18 20:24 | PC.NURSE ---
Patient in CT at this time.
--- NOTE | 2023-05-18 20:27 | PC.NURSE ---
pt back from CT
[2023-05-18 20:48] LABS: Bacteria,Urine Trace /lpf
[2023-05-18 21:00] VITALS: BP 136/72; PULSE 101; O2SAT 97
[2023-05-18 21:30] VITALS: BP 126/73; PULSE 95; O2SAT 97
[2023-05-18 22:17] VITALS: BP 124/79; PULSE 95; RESP 16; TEMP 36.7; O2SAT 97
== END 2023-05-18 22:22 | disposition home or self-care (01) ==
PROVIDERS: Emergency Provider Emergency Medicine; PCP Nurse Practitioner Family
DX: R10.31 Right lower quadrant pain (principal); R11.0 Nausea; R30.0 Dysuria; I10 Essential (primary) hypertension; Z87.891 Personal history of nicotine dependence
CPT/HCPCS: 74177; 80053; 81001; 83690; 85025; 96361; 96374; 96375; 99284; J0131; Q9967

== ENCOUNTER 2024-02-01 12:38 | Emergency (ER) | payer OTHER, SELFPAY ==
[2024-02-01 12:49] VITALS: BP 138/80; PULSE 103; RESP 18; TEMP 36.8; O2SAT 98; BMI 40.2
[2024-02-01 13:00] VITALS: BP 130/90; PULSE 94; O2SAT 96
[2024-02-01] MEDS: BELLADONNA ALKALOIDS 60 ML ML PO (13:22)
[2024-02-01 13:29] LABS: Microscopic, Urine URINE MICROSCOPIC (MICROSCOPIC)
[2024-02-01 13:31] LABS: Appearance,Urine CLEAR (Clear); Bilirubin,Urine Negative (Negative); Blood, Urine Negative (Negative); Color,Urine YELLOW (Yellow); Glucose,Urine (UA) Negative (Negative); Ketones,Urine Negative (Negative); Leukocyte Esterase,Urine Negative (Negative); Nitrate,Urine Negative (Negative); PH,Urine 6.5 (5.0-8.5); Protein,Urine Negative (Negative); Specific Gravity, Urine <= 1.005 (1.005-1.030); Urobilinogen,Urine 0.2 EU/dl (0.2)
[2024-02-01 13:40] LABS: Bacteria,Urine Trace /lpf; WBC,Urine Occasional #/hpf (0-3)
--- NOTE | 2024-02-01 13:47 | CT_ITS ---
FINAL REPORT TECHNIQUE: Postcontrast axial images through the abdomen and pelvis were performed. This study was performed with techniques to keep radiation doses as low as reasonably achievable, (ALARA). Individualized dose reduction techniques using automated exposure control or adjustment of mA and/or kV according to the patient's size were employed. CLINICAL HISTORY: epigastric pain and bloating with meals COMPARISON: 05/18/2023 FINDINGS: Abdomen: The lung bases are clear. There is mild fatty infiltration of the liver. The patient is status post cholecystectomy. The spleen is unremarkable. The adrenals are normal. The pancreas is unremarkable. The kidneys enhance appropriately. The aorta is normal in caliber. No free fluid or adenopathy is identified. No findings for mechanical bowel obstruction are identified. Pelvis: The appendix is normal. There is mild diffuse colon wall thickening of uncertain significance, colitis is not excluded. Patient is status post hysterectomy. There is a small umbilical hernia containing fat. The urinary bladder is unremarkable. No free fluid, free air, abscess or adenopathy is identified. IMPRESSION: Possible colitis. Reviewed, Interpreted and Dictated by Rasta Steele III, MD Transcribed by Abby Martin Authenticated and . [facility]
[2024-02-01 13:50] LABS: Albumin Level 4.1 g/dl (3.5-5.0); Chloride 103 mmol/L (98-107); Potassium 3.2 mmoL/L (3.5-5.1); Sodium 138 mmol/L (136-145)
[2024-02-01 13:53] LABS: Alanine Aminotransferase 56 U/L (12-78); Albumin/Globulin Ratio 1.2 (1.1-1.8); Alkaline Phosphatase 97 U/L (38-126); Anion Gap 6.2 mEq/L (5-15); Aspartate Amino Transferase 38 U/L (14-36); Bilirubin,Total 0.6 mg/dl (0.2-1.3); Blood Urea Nitrogen 12 mg/dl (7-17); Carbon Dioxide 32 mmol/L (22.0-30.0); Creatinine Clearance Estimated 93 mL/min (50-200); Estimated Glomerular Filt Rate 41 ml/min (>60); GFR (African American) 49 ML/MIN (>60); Globulin 3.3 g/dL (1.3-3.2); Glucose 116 mg/dl (74-100); Total Protein,Serum 7.4 g/dl (6.3-8.2)
[2024-02-01 13:54] LABS: Calcium 9.1 mg/dl (8.4-10.2)
[2024-02-01 14:05] LABS: Basophils # 0.1 K/mm3 (0-0.2); Basophils % 0.9 % (0.1-2.0); Eosinophils # 0.2 K/mm3 (0.0-0.4); Hematocrit 45.8 % (37.0-47.0); Hemoglobin 14.8 g/dL (12.2-16.2); Lymphocytes # 2.2 K/mm3 (0.7-4.5); Mean Corpuscular HGB Conc 32.2 g/dL (31.8-35.4); Mean Corpuscular Hemoglobin 30.9 pg (27.0-31.2); Mean Platelet Volume 7.6 fl (7.4-10.4); Monocytes # 0.5 K/mm3 (0.1-1.0); Monocytes % 5.9 % (1.7-9.3); Neutrophils # 5.5 K/mm3 (1.8-7.8); Neutrophils % 65.2 % (37.0-80.0); Platelet Count 344 K/mm3 (142-424); Red Blood Count 4.77 M/mm3 (4.20-5.40); Red Cell Distribution Width 14.1 % (11.5-17.5); White Blood Count 8.4 K/mm3 (4.8-10.8)
[2024-02-01] MEDS: IOPAMIDOL-370 (76%);100ML BOTTLE 75 ML IV (14:14)
[2024-02-01] MEDS: SODIUM CHLORIDE 0.9% 10ML SYR (RAD ONLY) 10 ML IV (14:14)
[2024-02-01] MEDS: SIMETHICONE 80MG CHEWABLE TABLET 80 MG PO (14:19)
[2024-02-01 14:33] LABS: Lipase 57 U/L (23-300)
--- NOTE | 2024-02-01 15:32 | HMH.EDGENADL ---
Discharge Plan Disposition Patient Disposition: Home, Self-Care Prescriptions Prescriptions: No Action amitriptyline 50 MG tablet 50 mg PO DAILY lorazepam 1 MG tablet 1 mg PO DAILY citalopram 40 mg tablet 40 mg PO DAILY Patient Comments: TAKE ONE TABLET BY MOUTH DAILY FOR ANXIETY omeprazole 20 mg capsule,delayed release(DR/EC) 20 mg PO DAILY Patient Comments: TAKE ONE CAPSULE BY MOUTH DAILY hydrochlorothiazide 25 mg tablet 25 mg PO DAILY Patient Comments: Take 1 tablet every day by oral route in the morning, for leg swelling and BP. fluticasone propionate 50 mcg/actuation spray,suspension 1 spray INTRANASAL DAILY Patient Comments: spray 1 spray in each nostril 2 times daily methylprednisolone [Medrol (Tj)] 4 mg tablets,dose pack See Rx Instructions .Route .COMPLEX 6 Days Qty: 21 0RF Rx Instructions: taper pack; amoxicillin-pot clavulanate 875-125 mg Tablet 1 tab PO Q12H Qty: 20 0RF Referrals Follow up/Referrals: Belkis Kwok [Primary Care Provider] - See instructions Activity Restrictions/Add. Instructions Additional Instructions/Restrictions: Call your family doctor to establish care for this visit to the emergency department and schedule follow-up within 48 hours to ensure improvement. If you have any worsening of your condition or any other concerning signs or symptoms, return to the emergency department or your primary care doctor for further evaluation. Follow-up with your family doctor regarding upper GI scope and gastroenterology follow-up. Also talk to them about diet modifications to try to identify what causes you to have the symptoms. Clinical Impressions Clinical Impression: Abdominal pain, Abdominal bloating Print Language Print Language: Malay Discharge ED Provider: Vicente Valerio General Adult HPI General Chief complaint: PAIN Stated complaint: stomach pain, diarrhea, bloating Time Seen by Provider: 02/01/24 13:25 Mode of Arrival: Ambulatory Source of Information: Patient Limitations: No Limitations Description of Symptoms (Recalled from ER Triage Doc. by RN): c/o a hunger pain and when she eats she gets nauseated/bloating and burning with some diarrhea for 2 weeks. HAs lost 6 pds History of Present Illness HPI narrative: Please note that above description of symptoms, in this electronic medical record under categorization of recalled from ER triage doctor by RN are reflective of an initial nursing assessment, however, is not reflective of my full history and physical exam that was personally taken and clarified. Consequentially, this preceding description of symptoms, which may include the patient's categorized chief complaint in the EMR, do not reflect my personal clinical impression, and the ultimate description of history of present illness and patient stated complaints should be deferred to this section of the note. Unless stated otherwise or congruent with this section of the note, additional signs, symptoms, or incongruence should be interpreted as inaccurate with my clinical impression. Related Data Home Medications ?Medication ?Instructions ?Recorded ?Confirmed amitriptyline 50 mg tablet 50 mg PO DAILY Depression 05/23/21 01/27/24 lorazepam 1 mg tablet 1 mg PO DAILY Anxiety 05/23/21 01/27/24 citalopram 40 mg tablet 40 mg PO DAILY 01/27/24 01/27/24 fluticasone propionate 50 1 spray intranasal DAILY 01/27/24 01/27/24 mcg/actuation nasal spray,suspension hydrochlorothiazide 25 mg tablet 25 mg PO DAILY 01/27/24 01/27/24 omeprazole 20 mg capsule,delayed 20 mg PO DAILY 01/27/24 01/27/24 release Previous Rx's ?Medication ?Instructions ?Recorded amoxicillin 875 mg-potassium 1 tab PO Q12H #20 tabs 01/27/24 clavulanate 125 mg tablet methylprednisolone 4 mg tablets in See Rx Instructions .Route 01/27/24 a dose pack (Medrol (Tj)) .COMPLEX 6 days #21 tabs Allergies Allergy/AdvReac Type Severity Reaction Status Date / Time aspirin [ASPIRIN] Allergy Difficulty Verified 01/27/24 17:[address] [facility] Disclaimer: The information contained in this section may have been updated after the patient was seen, as this information can be updated by other users. Medical History Anxiety Depression Encounter for tubal ligation Surgical History History of cholecystectomy History of hysterectomy Social History Smoking Status: Unknown if ever smoked alcohol intake: never current occupational status: other Travel in the last 8 weeks: None ROS Obtained: Yes All systems reviewed & no additional complaints except as documented Physical Exam General General appearance: alert Head Head exam: atraumatic and normocephalic Eye Eye exam: Present normal appearance, PERRL and EOMI Neck Neck exam: Present normal inspection, full ROM and trachea midline Respiratory Respiratory exam: Absent respiratory distress, wheezes, stridor, accessory muscle use or prolonged expiratory phase Cardiovascular Cardiovascular exam: Present other (Pulses equal symmetric in upper and lower extremities) Abdominal Exam Abdominal exam: Present soft; Absent distention, tenderness or pulsatile mass Extremities Exam Extremities exam: Absent edema Neurological Exam Neurological exam: Present alert, oriented X3 and CN II-XII intact; Absent motor sensory deficit Skin Skin exam: Present warm and dry; Absent diaphoresis or erythema Medical Decision Making Medical Records Medical records reviewed: Yes I reviewed the patient's medical records. Jerald Inquiry Pt receiving controlled substance: No Jerald was queried for this patient: No Vital Signs: 02/01/24 12:49 02/01/24 13:00 02/01/24 16:14 Temperature 98.3 F 98.3 F Temperature Source Oral Pulse Rate 94 H 105 H Pulse Rate [Left Radial] 103 H Respiratory Rate 18 18 Blood Pressure 130/90 114/67 Blood Pressure [Right Arm] 138/80 Blood Pressure Mean [Right Arm] 99 Blood Pressure Source [Right Arm] Automatic Cuff Blood Pressure Position [Right Arm] Sitting 02 Sat by Pulse Oximetry 98 96 Oxygen Delivery Method Room Air Room Air Lab Data Lab Results 02/01/24 13:25: Urine Color Yellow, Urine Appearance Clear, Urine pH 6.5, Ur Specific [place] <= 1.005, Urine Protein Negative, Urine Glucose (UA) Negative, Urine Ketones Negative, Urine Blood Negative, Urine Nitrate Negative, Urine Bilirubin Negative, Urine Urobilinogen 0.2, Ur Leukocyte Esterase Negative, Urine RBC None, Urine WBC Occasional, Ur Squamous Epith Cells 3-5, Urine Bacteria Trace 02/01/24 13:34: WBC 8.4, RBC 4.77, Hgb 14.8, Hct 45.8, MCV 96.0, MCH 30.9, MCHC 32.2, RDW 14.1, Plt Count 344, MPV 7.6, Neut % (Auto) 65.2, Lymph % (Auto) 26.0, [place] % (Auto) 5.9, Eos % (Auto) 2.0, Baso % (Auto) 0.9, Neut # (Auto) 5.5, Lymph # (Auto) 2.2, [place] # (Auto) 0.5, Eos # (Auto) 0.2, Baso # (Auto) 0.1, Sodium 138, Potassium 3.2 L, Chloride 103, Carbon Dioxide 32 H, Anion Gap 6.2, BUN 12, Creatinine 1.40 H, Estimated Creat Clear 93, Estimated GFR 41 L, Est GFR ( Amer) 49 L, Glucose 116 H, Calcium 9.1, Total Bilirubin 0.6, AST 38 H, ALT 56, Alkaline Phosphatase 97, Total Protein 7.4, Albumin 4.1, Globulin 3.3 H, Albumin/Globulin Ratio 1.2, Lipase 57 02/01/24 13:34 02/01/24 13:34 Orders (Tests/Meds): ED MEDICATIONS Discontinued Medications Generic Name Dose Route Start Last Admin Trade Name Freq PRN Reason Stop Dose Admin Belladonna Alkaloids 60 ml 02/01/24 13:16 02/01/24 13:22 Belladonna Alkaloids 60 Ml Ml PO 02/01/24 13:17 60 ml ONCE ONE Administration Iopamidol 75 ml 02/01/24 14:13 02/01/24 14:14 Iopamidol-370 (76%);100ml Bottle IV 02/01/24 14:14 75 ml ONCE ONE Administration Simethicone 80 mg 02/01/24 13:47 02/01/24 14:19 Simethicone 80mg Chewable Tablet PO 02/01/24 13:48 80 mg ONCE ONE Administration Sodium Chloride 10 ml 02/01/24 14:13 02/01/24 14:14 Sodium Chloride 0.9% 10ml Syr (Rad Only) IV 02/01/24 14:14 10 ml ONCE ONE Administration ORDERS Category Date Time Status CT abdomen pelvis w con Stat Cat Scan 02/01/24 13:47 Completed Complete Blood Count Auto Diff Stat Lab 02/01/24 13:34 Completed Comprehensive Metabolic Panel Stat Lab 02/01/24 13:34 Completed H. pylori, IgA Abs Stat Lab 02/01/24 14:10 Received Lipase Stat Lab 02/01/24 13:34 Completed Tissue Transglutaminase IgA Ab Stat Lab 02/01/24 14:10 Received UA [Urinalysis and Microscopic] Stat Lab 02/01/24 13:25 Completed Medical Decision Narrative: 43-year-old female with history of cholecystectomy, hysterectomy, chronic abdominal pain presenting with abdominal pain. Patient also has a history of H. pylori treated in the past. States that she has had this epigastric abdominal pain that is postprandial, mainly epigastric and right upper quadrant. Does not radiate. Feels like a burning, bloating. States that she also has lots of gas, intermittently passing gas and loose stools, not necessarily watery. Has not been on antibiotics recently, now run-ins with the healthcare system, or history of C. difficile/C. difficile contacts. Has follow-up with gastroenterology, is not for a couple of months. Patient has been taking Pepcid and PPI to try to help. History was obtained via conversation with patient. On arrival, patient hemodynamically stable, alert, oriented x4, appropriate, GCS 15, moving all extremities spontaneously, pupils equal and reactive to light. Full physical exam performed and significant for very well-appearing female who is in no acute distress. Obese. Abdomen is soft, nontender, nondistended. No flank tenderness. Cardiopulmonary exam within normal limits as well. Differential includes PUD, gastritis, enteritis, gastroenteritis, pancreatitis, SBO, colitis, diverticulitis, nephrolithiasis, UTI, choledocholithiasis, appendicitis, torsion, hepatitis, aortic pathology, mesenteric ischemia among others. Patient placed on continuous cardiac monitoring and continuous pulse ox with initial blood pressure 138/80, heart rate 3, saturation 98% on room air. Patient was given GI cocktail and Toradol for symptomatic management and correction of underlying abnormalities. Workup independently interpreted and significant for nonactionable hematologic workup. On independent interpretation of imaging, no acute findings in the abdomen and pelvis other than what appears to be mild colitis with gaseous distention. See radiology read for full review of final results. On reevaluation, patient states that GI cocktail modestly, but still having symptoms. Given patient's workup completely negative, reassuring physical exam, normal vital signs, very well-appearing, deemed appropriate for outpatient management. Because patient at baseline without signs or symptoms of clinical decompensation, deemed appropriate for discharge. Results were relayed to patient who voiced understanding and were agreeable to outpatient management and follow up. I discussed my clinical impression with patient and answered all questions. At this time, the evidence for any other entities in the differential is insufficient to warrant any further testing or ED observation. This was explained as well. Advisory was given that persistent or worsening symptoms require further evaluation. I confirmed the understanding of this discussion. Director Internal Audit disclaimer Much of this encounter note is an electronic lunchroom supervisor spoken language to printed text. Electronic lunchroom supervisor of the spoken language may permit errors. Although I have reviewed the note, some errors may still exist. Critical Care Critical Care Time Critical Care Time: No
[2024-02-01 16:14] VITALS: BP 114/67; PULSE 105; RESP 18; TEMP 36.8; O2SAT 97
[2024-02-05 15:16] LABS: Tissue Transglutaminase IgA Ab 3 U/mL (0-3)
== END 2024-02-01 16:15 | disposition home or self-care (01) ==
LOC: UTC 12:40 → ER 12:41
PROVIDERS: Emergency Provider Emergency Medicine; PCP Nurse Practitioner Family
DX: R10.9 Unspecified abdominal pain (principal); R14.0 Abdominal distension (gaseous); R19.7 Diarrhea, unspecified; R11.0 Nausea
CPT/HCPCS: 74177; 80053; 81001; 83516; 83690; 85025; 86677; 99285; Q9967

== ENCOUNTER 2024-05-10 19:17 | Emergency (ER) | payer OTHER, SELFPAY ==
--- NOTE | 2024-05-10 19:28 | EXP.UTC ---
Discharge Plan Disposition Patient Disposition: Home, Self-Care Condition: Good Prescriptions Prescriptions: New amoxicillin 875 mg tablet 875 mg PO Q12H Qty: 20 0RF benzonatate 100 mg capsule 100 mg PO TIDP PRN (Reason: Cough) Qty: 30 0RF methylprednisolone 4 mg Tablets,Dose Pack 4 mg PO DIRECTED 6 Days Qty: 21 0RF Rx Instructions: Take 1 pack as directed for 6 days No Action amitriptyline 50 MG tablet 50 mg PO DAILY lorazepam 1 MG tablet 1 mg PO DAILY citalopram 40 mg tablet 40 mg PO DAILY Patient Comments: TAKE ONE TABLET BY MOUTH DAILY FOR ANXIETY omeprazole 20 mg capsule,delayed release(DR/EC) 20 mg PO DAILY Patient Comments: TAKE ONE CAPSULE BY MOUTH DAILY hydrochlorothiazide 25 mg tablet 25 mg PO DAILY Patient Comments: Take 1 tablet every day by oral route in the morning, for leg swelling and BP. Referrals Follow up/Referrals: Belkis Kwok [Primary Care Provider] - See instructions Activity Restrictions/Add. Instructions Additional Instructions/Restrictions: Drink plenty of fluids. Take tylenol or ibuprofen for pain or fever. Take the medications as directed. Follow up with your regular doctor. GO TO THE ER FOR ANY WORSENING SYMPTOMS Clinical Impressions Clinical Impression: Sinusitis, Bronchitis Instructions Patient Instructions: Sinusitis, DI for Sinusitis Print Language Print Language: Turkmen Discharge ED Provider: Ricardo Morejon [facility] General Stated complaint: head congestion Time Seen by Provider: 05/10/24 19:25 Related Data Home Medications ?Medication ?Instructions ?Recorded ?Confirmed amitriptyline 50 mg tablet 50 mg PO DAILY Depression 05/23/21 05/10/24 lorazepam 1 mg tablet 1 mg PO DAILY Anxiety 05/23/21 05/10/24 citalopram 40 mg tablet 40 mg PO DAILY 01/27/24 05/10/24 hydrochlorothiazide 25 mg tablet 25 mg PO DAILY 01/27/24 05/10/24 omeprazole 20 mg capsule,delayed 20 mg PO DAILY 01/27/24 05/10/24 release Previous Rx's ?Medication ?Instructions ?Recorded amoxicillin 875 mg tablet 875 mg PO Q12H #20 tabs 05/10/24 benzonatate 100 mg capsule 100 mg PO TIDP PRN Cough #30 caps 05/10/24 methylprednisolone 4 mg tablets in 4 mg PO DIRECTED 6 days #21 tabs 05/10/24 a dose pack Allergies Allergy/AdvReac Type Severity Reaction Status Date / Time aspirin (ASPIRIN) Allergy Difficulty Verified 01/27/24 17:25 Breathing PFSH [facility] Disclaimer: The information contained in this section may have been updated after the patient was seen, as this information can be updated by other users. Medical History Anxiety Depression Encounter for tubal ligation Surgical History History of cholecystectomy History of hysterectomy Social History Smoking Status: Unknown if ever smoked alcohol intake: never current occupational status: other Travel in the last 8 weeks: None Have you lived/traveled outside [place] in past 30 days?: No Contact w/someone who lives/traveled outside [place] past 30 days?: No Exposure to someone with infectious disease in past 14 days?: Yes Do you have a fever (greater than 100.4 F or 38 C)?: No Have you tested positive for COVID-19: No Exposed to someone with COVID-19 in past 14 days?: Yes Do you have a sore throat?: Yes Do you have a cough?: Yes Do you have any weakness?: Yes Do you have any diarrhea?: No Are you experiencing any unusual bleeding?: No Do you have any muscle aches/pain?: No Do you have any abdominal pain?: No Are you experiencing loss of taste or smell?: No ROS Obtained: Yes All systems reviewed & no additional complaints except as documented Constitutional Constitutional: Reports poor appetite Eyes Eyes: Reports system reviewed and no additional complaints, except as documented ENT Ears, Nose, Mouth, and Throat: Reports as per HPI Cardiovascular Cardiovascular: Reports system reviewed and no additional complaints, except as documented and Denies chest pain Respiratory Respiratory: Denies shortness of breath, Reports chest congestion, Reports cough, Denies stridor and Denies wheezing Gastrointestinal Gastrointestingal: Reports system reviewed and no additional complaints, except as documented; Denies abdominal pain, diarrhea or vomiting Musculoskeletal Musculoskeletal: Reports system reviewed and no additional complaints, except as documented and Denies arthralgias Integumentary/Breasts Skin/Breast: Reports system reviewed and no additional complaints, except as documented and Denies rash Neurologic Neurologic: Denies paresthesias Allergic/Immunologic Allergic/Immunologic: Denies wheezing Physical Exam General General appearance: alert and in no apparent distress Head Head exam: atraumatic, normocephalic and normal inspection Eye Eye exam: Present normal appearance, PERRL and EOMI ENT ENT exam: Present normal exam, normal oropharynx, mucous membranes moist, TM's normal bilaterally and normal external ear exam Neck Neck exam: Present normal inspection, full ROM and trachea midline; Absent meningismus or lymphadenopathy Chest Chest inspection: Present normal inspection and symmetric chest wall rise; Absent tenderness Respiratory Respiratory exam: Present normal lung sounds bilaterally; Absent respiratory distress Cardiovascular Cardiovascular exam: Present regular rate and normal rhythm; Absent JVD Abdominal Exam Abdominal exam: Present soft and normal bowel sounds; Absent distention, tenderness or guarding Extremities Exam Extremities exam: Present normal inspection, full ROM and normal capillary refill; Absent calf tenderness Back Exam Back exam: Present normal inspection; Absent tenderness Neurological Exam Neurological exam: Present alert and oriented X3 Psychiatric Psychiatric exam: Present normal affect and normal mood Skin Skin exam: Present warm, dry, intact and normal color Lymphatic Lymphatic Findings: no adenopathy Medical Decision Making Medical Records Medical records reviewed: No I reviewed the patient's medical records. Screening: Per USPSTF and CDC recommendations, given the prevalence of disease in our region, it is our hospital?s policy to screen for HIV and viral Hepatitis for all patients aged 18 and over and those with ongoing risk factors. Jerald Inquiry Pt receiving controlled substance: No
[2024-05-10 19:33] VITALS: BP 143/81; PULSE 82; RESP 20; TEMP 36.7; O2SAT 97; BMI 42.3
[2024-05-10 19:41] LABS: Coronavirus 19, PCR Not Detected (NotDetected); Influenza A, PCR Not Detected (NotDetected); Influenza B, PCR Not Detected (NotDetected)
[2024-05-10 20:47] VITALS: BP 143/81; PULSE 82; RESP 20; TEMP 36.7
== END 2024-05-10 20:51 | disposition home or self-care (01) ==
PROVIDERS: Emergency Provider Nurse Practitioner Family; PCP Nurse Practitioner Family
DX: J01.90 Acute sinusitis, unspecified (principal); Z20.822 Contact with and (suspected) exposure to COVID-19
CPT/HCPCS: 87636; 99213; G0381

== ENCOUNTER 2024-12-09 06:44 | Outpatient (CLI) | payer OTHER, SELFPAY ==
--- NOTE | 2024-12-09 07:00 | CT_ITS ---
FINAL REPORT TECHNIQUE: Thin section axial CT with coronal reconstruction without IV contrast This study was performed with techniques to keep radiation doses as low as reasonably achievable, (ALARA). Individualized dose reduction techniques using automated exposure control or adjustment of mA and/or kV according to the patient''s size were employed. CLINICAL HISTORY: sinus pressure left sinus FINDINGS: No fracture is present. Paranasal sinuses are clear. No air-fluid levels are seen. The TMJs are intact. OMCs are clear. Nasal septum is midline. IMPRESSION: Unremarkable exam Reviewed, Interpreted and Dictated by Jonn Tripathi MD Transcribed by Erika Laws Authenticated and [facility]
== END 2024-12-09 23:59 | disposition home or self-care (01) ==
LOC: RAD 06:45
PROVIDERS: PCP Nurse Practitioner Family; Visit Provider Nurse Practitioner
DX: J32.9 Chronic sinusitis, unspecified (principal)
CPT/HCPCS: 70486

== ENCOUNTER 2025-01-21 14:51 | Emergency (ER) | payer OTHER, SELFPAY ==
--- NOTE | 2025-01-21 14:55 | ECG_ITS ---
APPROVED REPORT Exam: Resting ECG HR:87 bpm ECG Measurements Heart Rate 87 AXES OR 160 P 18 QRSd 97 QRS -18 QT 357 T 23 QTc 401 Conclusion SINUS RHYTHM LOW QRS VOLTAGE [QRS DEFLECTION < 0.5/1.0 mV IN LIMB/CHEST LEADS] POSSIBLE ANTERIOR MYOCARDIAL INFARCTION , PROBABLY OLD [30 ms Q WAVE IN V3/V4, OR R < 0.2 mV IN V4] ABNORMAL ECG UNCONFIRMED REPORT Electronically signed by : HIEN RAMOS, 01/22/2025 06:57:38
--- NOTE | 2025-01-21 15:01 | XR_ITS ---
FINAL REPORT CLINICAL HISTORY: short of breath, covid positive FINDINGS: A portable view of the chest is obtained. There is no prior exam for comparison Cardiac and mediastinal silhouettes are normal. The lungs are clear. There is no pleural effusion or pneumothorax. IMPRESSION: No acute process on this portable exam. Reviewed, Interpreted and Dictated by Dorothy Downing MD Transcribed by Bhavani Ho Authenticated and [facility]
[2025-01-21 15:05] VITALS: BP 129/61; PULSE 98; RESP 18; TEMP 36.9; O2SAT 99; BMI 43.8
--- NOTE | 2025-01-21 15:06 | ED_ITS ---
Discharge Plan Disposition Patient Disposition: Home, Self-Care Prescriptions Prescriptions: New albuterol sulfate 90 mcg/actuation aerosol powdr breath activated 2 inh inhalation Q6H PRN (Reason: shortness of breath or wheezing) Qty: 1 0RF benzonatate 200 mg capsule 200 mg PO TID PRN (Reason: cough) Qty: 30 0RF prednisone 20 mg tablet 20 mg PO BID 7 Days Qty: 14 0RF No Action Linzess 145 mcg capsule PO PRN Patient Comments: TAKE ONE CAPSULE BY MOUTH EVERY DAY FOR CONSTIPATION Vraylar 3 mg capsule PO Patient Comments: TAKE ONE CAPSULE BY MOUTH EVERY DAY azelastine 137 mcg (0.1 %) spray,non-aerosol 2 spray intranasal BID Qty: 30 2RF Rx Instructions: administer into each nostril amoxicillin 500 mg tablet 500 mg PO TID Qty: 30 0RF omeprazole 20 mg capsule,delayed release(DR/EC) 20 mg PO BID Qty: 60 1RF lorazepam 1 mg tablet 1 mg PO BID citalopram 40 mg tablet 40 mg PO DAILY Patient Comments: TAKE ONE TABLET BY MOUTH DAILY FOR ANXIETY hydrochlorothiazide 25 mg tablet 25 mg PO DAILY Patient Comments: Take 1 tablet every day by oral route in the morning, for leg swelling and BP. Referrals Follow up/Referrals: Renard Frausto MD [Primary Care Provider, Internal Medicine] - See instructions Activity Restrictions/Add. Instructions Additional Instructions/Restrictions: Please make follow-up appointment with your PCP for this week. Drink lots of fluids, rest. Take meds as directed. If any symptoms worsen or do not improve please return to the ED. Your chest x-ray was normal and showed no pneumonia. Clinical Impressions Clinical Impression: COVID-19 Instructions Patient Instructions: COVID-19 Print Language Print Language: Malay Discharge ED Provider: Mihai Milligan HPI <Natividad Alcantar (ED), EQUIPMENT APPLICATION SPECIALIST - Last Filed: 01/21/25 18:25> General Chief Complaint: Shortness of Breath/Dyspnea Stated Complaint: Diff Breathing, COVID + Time Seen by Provider: 01/21/25 14:53 History of Present Illness HPI narrative: 44-year-old female arrives via EMS for shortness of breath today. Patient says she has had COVID for 1 week. She started feeling bad last Sunday but did not test until [place]. Did go to the [facility] and her COVID was negative there she was sent home with antibiotics. She did not take these because she knew antibiotics would not help COVID. She has had fever, aches, cough. She has had some production of cough. She has had no vomiting or diarrhea. She says her airway feels irritated . Patient says she has been so sick she just cannot do it anymore Related Data Home Medications ?Medication ?Instructions ?Recorded ?Confirmed citalopram 40 mg tablet 40 mg PO DAILY 01/27/2412/26 hydrochlorothiazide 25 mg tablet 25 mg PO DAILY 01/06/25 cariprazine 3 mg capsule (Vraylar) mg PO 12/03/2412/26 linaclotide 145 mcg capsule mcg PO PRN 12/03/24 (Linzess) lorazepam 1 mg tablet 1 mg PO BID Anxiety 01/06/25 01/06/25 Previous Rx's ?Medication ?Instructions ?Recorded azelastine 137 mcg (0.1 %) nasal 2 spray intranasal BI D #30 mL 12/03/24 spray amoxicillin 500 mg tablet 500 mg PO TID #30 tabs 01/06 omeprazole 20 mg capsule,delayed 20 mg PO BID stomach #60 caps 01/06/25 release albuterol sulfate 90 mcg/actuation 2 inh inhalation Q6 H PRN shortness 01/21/25 breath activated powder inhaler of breath or wheezing #1 ea benzonatate 200 mg capsule 200 mg PO TID PRN cough #30 caps 01/21/25 prednisone 20 mg tablet 20 mg PO BID 7 days #14 tabs 01/21/25 Allergies Allergy/AdvReac Type Severity Reaction Status Date / Time acetaminophen (From Percocet) Allergy Severe Swelling Verified 01/06/25 11:12 of Lip/Tongue/Throat cefdinir Allergy Severe Swelling Verified 01/06/25 11:12 of Lip/Tongue/Throat oxycodone (From Percocet) Allergy Severe Swelling Verified 01/06/25 11:12 of Lip/Tongue/Throat hydrocodone (From Lortab) Allergy Mild Swelling Verified 01/06/25 11:12 of Lip/Tongue/Throat aspirin (ASPIRIN) Allergy Difficulty Verified 01/06/25 11:12 Breathing PFSH <Natividad Alcantar (ED), EQUIPMENT APPLICATION SPECIALIST - Last Filed: 01/21/25 18:25> [facility] Disclaimer: The information contained in this section may have been updated after the patient was seen, as this information can be updated by other users. Medical History (Updated 01/21/25 @ 18:11 by Natividad Alcantar (ED), EQUIPMENT APPLICATION SPECIALIST) Esophagitis Gastritis Fluid level behind tympanic membrane of both ears Eustachian tube dysfunction Chronic sinusitis Recurrent otitis media of left ear Encounter for tubal ligation Depression Anxiety Surgical History History of tubal ligation History of hysterectomy History of cholecystectomy Family History (Updated 01/21/25 @ 15:06 by Kerry Butt RN) Other No significant family history Social History Smoking Status: Never smoker alcohol intake: never current occupational status: other Travel in the last 8 weeks?: None Have you lived/traveled outside US in past 30 days?: No Contact w/someone who lives/traveled outside US past 30 days?: No Exposure to someone with infectious disease in past 14 days?: No Do you have a fever (greater than 100.4 F or 38 C)?: No Have you tested positive for COVID-19?: No Exposed to someone with COVID-19 in past 14 days?: No Do you have a sore throat?: No Do you have a cough?: No Do you have any weakness?: No Do you have any diarrhea?: No Are you experiencing any unusual bleeding?: No Do you have any muscle aches/pain?: No Do you have any abdominal pain?: No Are you experiencing loss of taste or smell?: No Other Medical History Have you received the Flu Vaccine for this season: No Have you received the Pneumonia Vaccine: No <Natividad Alcantar (ED), EQUIPMENT APPLICATION SPECIALIST - Last Filed: 01/21/25 18:25> ROS Obtained: Yes Systems reviewed as appropriate & no additional complaints except as documented Constitutional Constitutional: Reports as per HPI Physical Exam <Natividad Alcantar (ED), EQUIPMENT APPLICATION SPECIALIST - Last Filed: 01/21/25 18:25> General General appearance: alert and anxious Head Head exam: normocephalic Eye Eye exam: Present PERRL ENT ENT exam: Present mucous membranes moist Neck Neck exam: Present trachea midline Chest Chest inspection: Present normal inspection and symmetric chest wall rise Respiratory Respiratory exam: Present wheezes Cardiovascular Cardiovascular exam: Present regular rate, normal rhythm, normal heart sounds, +S1 and +S2 Abdominal Exam Abdominal exam: Present soft and normal bowel sounds Extremities Exam Extremities exam: Present normal inspection, full ROM and normal capillary refill Back Exam Back exam: Present full ROM Neurological Exam Neurological exam: Present alert and oriented X3 Psychiatric Psychiatric exam: Present anxious Skin Skin exam: Present warm and dry HEART Score <Natividad Alcantar (ED), EQUIPMENT APPLICATION SPECIALIST - Last Filed: 01/21/25 18:25> HEART Score HEART Score assessment performed?: Yes History (anamnesis): Slightly suspicious ECG: Normal Age: 45-65 years Risk factors: 1-2 risk factors Troponin: </= normal limit HEART Score: 2 <Mihai Milligan DO - Last Filed: 01/22/25 07:30> HEART Score HEART Score: 2 Critical Care <Natividad Alcantar (ED), EQUIPMENT APPLICATION SPECIALIST - Last Filed: 01/21/25 18:25> Critical Care Time Critical Care Time: No Medical Decision Making <Natividad Alcantar (ED), EQUIPMENT APPLICATION SPECIALIST - Last Filed: 01/21/25 18:25> Jerald Inquiry Pt receiving controlled substance: No Jerald was queried for this patient: No Vital Signs Vital Signs: 01/21/25 15:05 01/21/25 15:05 01/21/25 15:05 Temperature 98.5 F 98.5 F Temperature Source Oral Pulse Rate 98 H Pulse Rate [Right] 98 H Respiratory Rate 18 18 Blood Pressure 129/61 Blood Pressure [Left Arm] 129/61 Blood Pressure Mean [Left Arm] 83 02 Sat by Pulse Oximetry 99 99 99 Oxygen Delivery Method Nasal Cannula Oxygen Flow Rate (LPM) 2 01/21/25 16:01 01/21/25 16:15 01/21/25 18:19 Temperature 98.5 F Temperature Source Pulse Rate 118 H 78 116 H Pulse Rate [Right] Respiratory Rate 18 Blood Pressure 140/83 140/83 140/84 Blood Pressure [Left Arm] Blood Pressure Mean [Left Arm] 02 Sat by Pulse Oximetry 99 98 Oxygen Delivery Method Oxygen Flow Rate (LPM) Lab Data Labs: Lab Results 01/21/25 15:00: WBC 8.2, RBC 5.30, Hgb 15.8, Hct 47.9 H, MCV 90.4, MCH 29.8, MCHC 33.0, RDW 14.0, Plt Count 283, MPV 8.9, Neut % (Auto) 70.4, Lymph % (Auto) 17.4, [place] % (Auto) 9.6 H, Eos % (Auto) 1.7, Baso % (Auto) 0.5, Neut # (Auto) 5.8, Lymph # (Auto) 1.4, [place] # (Auto) 0.8, Eos # (Auto) 0.1, Baso # (Auto) 0.0, D-Dimer 0.70 H, Sodium 140, Potassium 4.0, Chloride 107, Carbon Dioxide 26, Anion Gap 11.0, BUN 6 L, Creatinine 1.00, Estimated Creat Clear 68, Estimated GFR 60, Est GFR ( Amer) 72, Glucose 96, Lactate 1.2, Calcium 9.4, Magnesium 1.9, Total Bilirubin 0.4, AST 70 H, ALT 91 H, Alkaline Phosphatase 100, Troponin I < 0.01, NT-Pro-B Natriuret Pep 62.0, Total Protein 7.6, Albumin 4.3, Globulin 3.3 H, Albumin/Globulin Ratio 1.3 01/21/25 15:03: VBG pH 7.38, VBG pCO2 36.8, VBG pO2 47.4 H, VBG HCO3 21.1 L, VBG Total CO2 22.2 L, VBG O2 Saturation 83.6 H, VBG Base Excess -4.1 L, VBG Lactic Acid 1.1 01/21/25 15:00 01/21/25 15:00 Response Orders (Tests/Meds): ED MEDICATIONS Discontinued Medications Generic Name Dose Route Start Last Admin Trade Name Freq PRN Reason Stop Dose Admin Albuterol/Ipratropium 9 ml 01/21/25 15:01 01/21/25 15:33 Ipratropium/Albuterol 3 Ml Neb IH 01/21/25 15:02 9 ml ONCE ONE Administration Sodium Chloride 1,000 mls @ 999 mls/hr 01/21/25 15:01 01/21/25 17:02 Sod Chlor 0.9% 1000ml Bag IV 01/21/25 16:01 Infused .Q1H1M ONE Infusion Magnesium Sulfate 2 gm in 50 mls @ 50 mls/hr 01/21/25 15:01 01/21/25 17:45 Magnesium Sulfate 2gm/50ml Premix IV 01/21/25 16:00 Infused ONCE ONE Infusion Methylprednisolone Sodium Succinate 125 mg 01/21/25 15:01 01/21/25 15:31 Methylprednisolone Sod Succ 125mg Vial IV 01/21/25 15:02 125 mg ONCE ONE Administration ORDERS Category Date Time Status Chest XR -- portable [XR chest portable] Stat Exams 01/21/25 15:01 Completed BNP [NT Pro Brain Natriuretic Pep.] Stat Lab 01/21/25 15:00 Completed CBC [Complete Blood Count Auto Diff] Stat Lab 01/21/25 15:00 Completed Comprehensive Metabolic Panel Stat Lab 01/21/25 15:00 Completed D-Dimer Stat Lab 01/21/25 15:00 Completed Lactic Acid Stat Lab 01/21/25 15:00 Completed Magnesium Stat Lab 01/21/25 15:00 Completed Trop I [Troponin I] Stat Lab 01/21/25 15:00 Completed Blood Culture Stat Micro 01/21/25 15:51 Received Venous Blood Gas Stat RT 01/21/25 15:03 Completed MDM Narrative Medical Decision Narrative: patient is a 44-year-old female presenting to the emergency department for evaluation of shortness of breath and COVID. Patient is hemodynamically stable and nontoxic-appearing upon arrival, afebrile. Differential diagnosis includes bronchitis, pneumonia, viral cough, among others. Workup will be conducted with hematologic labs, specific imaging. Initial inventions include crystalloid bolus. Initial workup reviewed by me hematologic labs are remarkable for normal white count, elevated slightly D-dimer of 0.70. Considered the years criteria patient does not require CTA as DVT is not most likely diagnosis, patient has no hemoptysis no clinical signs of DVT and no PE signs or symptoms. Imaging informally interpreted by me and remarkable for nothing acute. Formal imaging read remarkable for nothing acute. Upon repeat evaluation patient's pain is improved. She is a little shaky from the nebulizer treatments. However she looks improved. Patient will be sent home with steroid and inhaler. Patient is safe for discharge home and follow-up with her PCP this week. <Mihai Milligan DO - Last Filed: 01/22/25 07:30> Vital Signs Vital Signs: 01/21/25 15:05 01/21/25 15:05 01/21/25 15:05 Temperature 98.5 F 98.5 F Temperature Source Oral Pulse Rate 98 H Pulse Rate [Right] 98 H Respiratory Rate 18 18 Blood Pressure 129/61 Blood Pressure [Left Arm] 129/61 Blood Pressure Mean [Left Arm] 83 02 Sat by Pulse Oximetry 99 99 99 Oxygen Delivery Method Nasal Cannula Oxygen Flow Rate (LPM) 2 01/21/25 16:01 01/21/25 16:15 01/21/25 18:19 Temperature 98.5 F Temperature Source Pulse Rate 118 H 78 116 H Pulse Rate [Right] Respiratory Rate 18 Blood Pressure 140/83 140/83 140/84 Blood Pressure [Left Arm] Blood Pressure Mean [Left Arm] 02 Sat by Pulse Oximetry 99 98 Oxygen Delivery Method Oxygen Flow Rate (LPM) Lab Data Labs: Lab Results 01/21/25 15:00: WBC 8.2, RBC 5.30, Hgb 15.8, Hct 47.9 H, MCV 90.4, MCH 29.8, MCHC 33.0, RDW 14.0, Plt Count 283, MPV 8.9, Neut % (Auto) 70.4, Lymph % (Auto) 17.4, [place] % (Auto) 9.6 H, Eos % (Auto) 1.7, Baso % (Auto) 0.5, Neut # (Auto) 5.8, Lymph # (Auto) 1.4, [place] # (Auto) 0.8, Eos # (Auto) 0.1, Baso # (Auto) 0.0, D-Dimer 0.70 H, Sodium 140, Potassium 4.0, Chloride 107, Carbon Dioxide 26, Anion Gap 11.0, BUN 6 L, Creatinine 1.00, Estimated Creat Clear 68, Estimated GFR 60, Est GFR ( Amer) 72, Glucose 96, Lactate 1.2, Calcium 9.4, Magnesium 1.9, Total Bilirubin 0.4, AST 70 H, ALT 91 H, Alkaline Phosphatase 100, Troponin I < 0.01, NT-Pro-B Natriuret Pep 62.0, Total Protein 7.6, Albumin 4.3, Globulin 3.3 H, Albumin/Globulin Ratio 1.3 01/21/25 15:03: VBG pH 7.38, VBG pCO2 36.8, VBG pO2 47.4 H, VBG HCO3 21.1 L, VBG Total CO2 22.2 L, VBG O2 Saturation 83.6 H, VBG Base Excess -4.1 L, VBG Lactic Acid 1.1 Response Orders (Tests/Meds): ED MEDICATIONS Discontinued Medications Generic Name Dose Route Start Last Admin Trade Name Freq PRN Reason Stop Dose Admin Albuterol/Ipratropium 9 ml 01/21/25 15:01 01/21/25 15:33 Ipratropium/Albuterol 3 Ml Neb IH 01/21/25 15:02 9 ml ONCE ONE Administration Sodium Chloride 1,000 mls @ 999 mls/hr 01/21/25 15:01 01/21/25 17:02 Sod Chlor 0.9% 1000ml Bag IV 01/21/25 16:01 Infused .Q1H1M ONE Infusion Magnesium Sulfate 2 gm in 50 mls @ 50 mls/hr 01/21/25 15:01 01/21/25 17:45 Magnesium Sulfate 2gm/50ml Premix IV 01/21/25 16:00 Infused ONCE ONE Infusion Methylprednisolone Sodium Succinate 125 mg 01/21/25 15:01 01/21/25 15:31 Methylprednisolone Sod Succ 125mg Vial IV 01/21/25 15:02 125 mg ONCE ONE Administration ORDERS Category Date Time Status Chest XR -- portable [XR chest portable] Stat Exams 01/21/25 15:01 Completed BNP [NT Pro Brain Natriuretic Pep.] Stat Lab 01/21/25 15:00 Completed CBC [Complete Blood Count Auto Diff] Stat Lab 01/21/25 15:00 Completed Comprehensive Metabolic Panel Stat Lab 01/21/25 15:00 Completed D-Dimer Stat Lab 01/21/25 15:00 Completed Lactic Acid Stat Lab 01/21/25 15:00 Completed Magnesium Stat Lab 01/21/25 15:00 Completed Trop I [Troponin I] Stat Lab 01/21/25 15:00 Completed Blood Culture Stat Micro 01/21/25 15:51 Received Venous Blood Gas Stat RT 01/21/25 15:03 Completed ECG Data Tracing #1: Attestation: I reviewed this ECG and interpreted as documented below: ECG Narrative: EKG personally interpreted by me demonstrates normal sinus rhythm with a rate of 87 bpm, left axis, no RI prolongation, narrow QRS, no QTc prolongation. No ST elevation or pression. No overt signs of ischemia or arrhythmia. I have reviewed prior EKGs which do show stable S waves in leads III and aVF. [facility] Narrative Medical Decision Narrative: patient is a 44-year-old female presenting to the emergency department for evaluation of shortness of breath and COVID. Patient is hemodynamically stable and nontoxic-appearing upon arrival, afebrile. Differential diagnosis includes bronchitis, pneumonia, viral cough, among others. Workup will be conducted with hematologic labs, specific imaging. Initial inventions include crystalloid bolus. Initial workup reviewed by me hematologic labs are remarkable for normal white count, elevated slightly D-dimer of 0.70. Considered the years criteria patient does not require CTA as DVT is not most likely diagnosis, patient has no hemoptysis no clinical signs of DVT and no PE signs or symptoms. Imaging informally interpreted by me and remarkable for nothing acute. Formal imaging read remarkable for nothing acute. Upon repeat evaluation patient's pain is improved. She is a little shaky from the nebulizer treatments. However she looks improved. Patient will be sent home with steroid and inhaler. Patient is safe for discharge home and follow-up with her PCP this week. I was consulted by the SARA, and we discussed the complexity of problems being addressed. I approved the treatment and management plan for this patient's care in the emergency department, thus performing a substantive portion of the medical decision making. I independently evaluated and assessed this patient. She tells me that she was diagnosed with COVID earlier this week by an at home test. She states that she was relatively asymptomatic aside from a viral prodrome until today when she began experiencing shortness of breath and cough. On my examination she does not have any wheezes in her bilateral lung wood. No crackles or rhonchi present. No lower extremity erythema or pitting edema. However, she does have a bronchospastic cough. We have treated with DuoNeb's as well as steroids. On repeat reassessment she is resting comfortably and appears to be in no acute distress. We did obtain hematologic labs which were largely unremarkable. As noted above, her D-dimer was 0.7 however by the years criteria she does not necessitate a formal CTA of the chest as her D-dimer is not greater than 1.0 and an alternative diagnosis is more likely. Given her symptomatic improvement we ultimately discharged the patient home if with albuterol and steroids. Return precautions were given regarding worsening shortness of breath. Mihai Milligan DO
[2025-01-21 15:14] LABS: Lactate Venous 1.1 mmol/L (0.4-2.0); VBG HCO3 21.1 mmol/L (23-30); VBG PCO2 36.8 mmol/L (35-51); VBG PH 7.38 mmol/L (7.31-7.41); VBG PO2 47.4 mmol/L (28-40)
[2025-01-21 15:14] LABS: Hematocrit 47.9 % (37.0-47.0); Hemoglobin 15.8 g/dL (12.2-16.2); Immature Granulocytes % 0.4 %; Mean Corpuscular HGB Conc 33.0 g/dL (31.8-35.4); Mean Corpuscular Hemoglobin 29.8 pg (27.0-31.2); Mean Corpuscular Volume 90.4 fl (81-99); Nucleated Red Blood Cells % 0 %; Platelet Count 283 K/mm3 (142-424); Red Blood Count 5.30 M/mm3 (4.20-5.40); Red Cell Distribution Width-SD 46.5 fL; White Blood Count 8.2 K/mm3 (4.8-10.8)
--- OUTSIDE RECORDS SUMMARY | 2025-01-21 15:14 | XMS_ITS | Encounter Summary ---
Author Organization [facility] Address [address] [place] [address] Care Team Providers Care Manager Data Warehouse Name Role Phone SundarBelkis TRISTEN Primary Care Provider [phone] Reason for Visit * Reason Onset Date Comments DR ADALGISA FERRARI - BREAST PAIN 12/15/2024 Encounter Details Date Type Department Care Team (Late st Contact Info) Description 12/15/2024 Telephone [facility] [address] [phone] Adalgisa Ferrari MD [address] [phone] ADALGISA FERRARI - BREAST PAIN Social History Tobacco Use Types Packs/Day Years Used Date Smoking Tobacco: Former Cigarettes 1 19.1 0 09/17/2001 - 11/05/2020 Smokeless Tobacco: Never Comments:Pt started back smo jerilyn 0.50 PPD Alcohol Use Standard Drinks/Week Comments No 0 (1 standard drink = 0.6 oz pur e alcohol) PHQ-2 Answer Date Recorded Retired Total Score 0 05/19/2020 Abuse Screen Answer Date Recorded Feels Unsafe at Home or Work/School no 06/08/2024 Feels Threatened by Someone no 05/28 Does Anyone Try to Keep You From Having Contact with Others or Doing Things Outside Your Home? no 06/08/2024 Physical Signs of Abuse Present no 06/08/2024 Comments No Sex and Gender Information Value Date Recorded Sex Assigned at Female 02/03/2023 9:40 AM EDT Legal Sex Female 12:09 PM EDT Gender Identity Female 02/03/2023 9:40 AM EDT Sexual Orientation Straight 02/03/2023 9: 40 AM EDT Occupation Industry Job Start Date Job End Date [employer]STRU[employer] Not on file Not on file Not on file documented as of this encounter Miscellaneous Notes * Telephone Encounter - Letty Lei MA - 12/15/2024 2:00 PM EDT Returned patient call- patient reports issues with right breast tenderness, nipple discharge and dimpling of the skin on breast when lifting arm. Patient scheduled for breast exam 12/17/24. * Telephone Encounter - Bhavani Sanders RegSched Rep - 12/15/2024 12:43 PM EDT Provider: DR ADALGISA FERRARI Caller: Viktoriya Means Relationship to Patient: Self Pharmacy: [facility] - [address] [phone] PH [phone] FX Phone Number: Telephone Information: Reason for Call: PAIN IN RIGHT BREAST, When was the patient last seen: 03/30/21 When did it start: ABOUT 1 MONTH AGO Where is it located: RIGHT BREAST Characteristics of symptom/severity: PAIN IN RIGHT BREAST AND WILL SOMETIMES HAVE DISCHARGE FROM THAT BREAST WHILE IN SHOWER Timing- Is it constant or intermittent: INTERMITTENT What makes it worse: PRESSURE What makes it better: NA What therapies/medications have you tried: NOTHING SO FAR. PT STATES THAT SHE CALLED LAST MONTH TO THE OFFICE BUT HADN'T HEARD ANYTHING BACK AND IS FOLLOWING UP. documented in this encounter Plan of Treatment Upcoming Encounters Date Type Department Care Team (Late st Contact Info) Description 03/04/2025 9:15 AM EDT Office Visit [facility] [address] [place] [id number] Jaxon Montgomery III, MD [address] [place], [place] [id number] documented as of this encounter Visit Diagnoses Not on filedocumented in this encounter Care Teams Manager Data Warehouse Relationship Specialty Start Date End Date Belkis Kwok APRN [address] [place] [address] PCP - General Nurse Practitioner 04/26/20 documented as of this encounter
--- OUTSIDE RECORDS SUMMARY | 2025-01-21 15:14 | XMS_ITS | Clinical Summary ---
Author Organization [facility] Address [address] [place] [address] Care Team Providers Care [employer] Feeder Name Role Phone Belkis Kwok APRN Primary Care Provider [phone] Allergies Active Allergy Reactions Criticality Noted Date Comments Adhesive Tape Rash Low 01/28/2020 Aspirin Shortness Of Breath High 12/13/2015 Hydrocodone-Acetaminophen Nausea And Vomiting Low 0 01/28/2020 Oxycodone-Acetaminophen Nausea And Vomiting 06/2019 Medications LORazepam (ATIVAN) 1 MG tablet Take 1 tablet by mouth 2 (Two) Times a Day. Active amitriptyline (ELAVIL) 50 MG tablet Take 1 tablet by mouth At Night As Needed for Sleep. Active ProAir HFA 108 (90 Base) MCG/ACT inhaler Inhale 2 puffs As Needed. 01/19/2022 Active omeprazole (priLOSEC) 20 MG capsule Take 2 capsules by mouth Daily As Needed. 01/02/2022 Active Vraylar 1.5 MG capsule capsule Take 1 capsule by mouth Daily. 02/25/2024 Active cholecalciferol (VITAMIN D3) 25 MCG (1000 UT) tablet Take 1 tablet by mouth Daily. 02/27/2024 Active CeleXA 40 MG tablet Active fluticasone (FLONASE) 50 MCG/ACT nasal spray spray 1 spray in each nostril 2 times daily 02/05/2024 Active hydroCHLOROthia zide 12.5 MG tablet Take 1 tablet by mouth Daily. 02/25/2024 Active Active Problems Problem Noted Date Diagnosed Date Essential hypertension 01/29/2024 Syncope and collapse 12/08/2020 Pelvic pain 12/14/2015 Encounters Date Type Department Care Team Description 12/15/2024 Telephone [facility] [address] [place] [address] KAREN SCHELL - BREAST PAIN from Last 3 Months Family History Medical History Relation Name Comments Heart disease Father Ravi Segal Hodgkin's lymphoma Father Ravi Segal Hypertension Father Ravi Segal Breast cancer Maternal Aunt Fanny montez Diabetes Maternal Grandmother Grandmother Heart disease Maternal Grandmother Grandmother Hypertension Maternal Grandmother Grandmother Hypertension Mother Maria Guadalupe montez Diabetes Other Family History Heart disease Other Family History Hypertension Other Family History Lymphoma Other Family History Breast cancer Paternal Grandmother Ashley Garcia No Known Problems Sister 1 No Known Problems Sister 2 Endometrial cancer Neg Hx Ovarian cancer Neg Hx Relation Name Status Comments Father Ravi Segal Maternal Aunt Fanny montez Maternal Grandmother Grandmother Mother Maria Guadalupe montez Alive Other Family History Paternal Grandmother Ashley Garcia Sister 1 Alive Sister 2 Alive Social History Tobacco Use Types Packs/Day Years Used Date Smoking Tobacco: Former Cigarettes 1 19.1 0 09/17/2001 - 11/05/2020 Smokeless Tobacco: Never Tobacco Cessation:Counseling Given: Not Answered Comments:Pt started back smoking 0.50 PPD Alcohol Use Standard Drinks/Week Comments [...] 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 Not on file Not on file Last Filed Vital Signs Vital Sign Reading Time Taken Comments Blood Pressure 129/77 06/08/2024 6:00 AM EST Pulse 89 06/08/2024 6:00 AM EST Temperature 36.4 C (97.6 F) 06/08/2024 5:12 AM EST Respiratory Rate 20 06/08/2024 5:12 AM EST Oxygen Saturation 99% 06/08/2024 6:00 AM EST Inhaled Oxygen Concentration - - Weight 122 kg (270 lb) 06/08/2024 5:12 AM EST Height 172.7 cm (5' 8 ) 06/08/2024 5:12 AM EST Body Mass Index 41.05 06/08/2024 5:12 AM EST Plan of Treatment Upcoming Encounters Date Type Department Care Team (Late st Contact Info) Description 03/04/2025 9:15 AM EDT Office Visit [facility] CARDIOLOGY [address] [place] [id number] Jaxon Montgomery III, MD [address] [place] [address] Health Maintenance Due Date Last Done Comments TDAP/TD VACCINES (1 - Tdap) 1997 ANNUAL PHYSICAL 01/28/2020 HEPATITIS C SCREENING 01/28/2020 Annual Gynecologic Pelvic and Breast Exam 03/11/2022 03/10/2021, 02/04/2020 COLOGUARD 09/17/2023 COLON CANCER SCREENING 5 YEAR SIGMOIDOSCOPY 09/17/2023 COLONOSCOPY 09/17/2023 COLORECTAL CANCER SCREENING 09/17/2023 CT COLONOGRAPHY 09/17/2023 FECAL OCCULT BLOOD TEST 09/17/2023 FIT Testing (1 year) 09/17/2023 COVID-19 Vaccine ( - 2023- season) 2024 04/28/2021, 09/02/2020 MAMMOGRAM 02/12/2025 02/12/2023, 07/0 12/2020, 04/26/2020, Additional history exists INFLUENZA VACCINE 02/25/2025 Pneumococcal Vaccine 0-49 Aged Out No longer eligible based on patient's age to complete this topic Procedures Procedure Name Priority Date/Time Associated Diagnosis Comments MAMMO SCREENING DIGITAL TOMOSYNTHESIS BILATERAL W CAD Routine 02/12/2023 2:24 PM EDT Visit for screening mammogram SCANNED - PAP SMEAR Routine 02/04/2020 from Last 3 Months or Most Recently Relevant to Health Maintenance Results * Mammo Screening Digital Tomosynthesis Bilateral With CAD (02/12/2023 2:24 PM EDT) Anatomical Region Laterality Modality Breast N/A Mammography 02/18/2023 3:03 PM EDT Impressions 02/18/2023 3:06 PM EDT No mammographic findings suspicious for malignancy. RECOMMENDATION: Continue annual screening mammography. BI-RADS CATEGORY 1, NEGATIVE. CAD was utilized. The standard false-negative rate of mammography is between 10% and 25%. Complex patterns or increased breast density will markedly elevate the false-negative rate of mammography. A letter, in lay terminology, with the results of this exam will be mailed to the patient. This report was finalized on 02/18/2023 3:[address] Deisy Lim MD. Narrative 02/18/2023 3:06 PM EDT BILATERAL SCREENING MAMMOGRAM WITH TOMOSYNTHESIS: HISTORY: 42-year-old patient with no personal history of breast cancer and no new breast complaints. Her paternal grandmother and a maternal aunt were diagnosed with breast cancer. TECHNIQUE: Bilateral CC and MLO low dose, full field digital mammographic images were obtained with 2-D acquisitions and tomosynthesis. COMPARISON: 01/31/2017, 02/15/2017, 01/30/2019, 04/07/2020, 04/26/2020, 05/31/2020, and 12/02/2020 FINDINGS: There are scattered areas of fibroglandular density. The fibroglandular pattern is stable. There are no suspicious masses, worrisome calcifications, nonsurgical areas of architectural distortion, or other secondary signs of malignancy. Brinda Ferrari MD IMG MAMMOGRAPHY ORDERABLES Final Result * PAP SMEAR SCANNED (02/04/2020) Brinda Ferrari MD CHART REVIEW TABS Edited Resu lt - Final from Last 3 Months or Most Recently Relevant to Health Maintenance Insurance [facility] Care Teams [employer] Relationship Specialty Start Date End Date Belkis Kwok APRN [address] [place] [id number] PCP - General Nurse Practitioner 04/26/20
[2025-01-21 15:24] LABS: Albumin Level 4.3 g/dl (3.5-5.0); Chloride 107 mmol/L (98-107); Potassium 4.0 mmoL/L (3.5-5.1); Sodium 140 mmol/L (136-145)
[2025-01-21 15:27] LABS: Alanine Aminotransferase 91 U/L (12-78); Albumin/Globulin Ratio 1.3 (1.1-1.8); Alkaline Phosphatase 100 U/L (38-126); Anion Gap 11.0 mEq/L (5-15); Aspartate Amino Transferase 70 U/L (14-36); Bilirubin,Total 0.4 mg/dl (0.2-1.3); Blood Urea Nitrogen 6 mg/dl (7-17); Calcium 9.4 mg/dl (8.4-10.2); Carbon Dioxide 26 mmol/L (22.0-30.0); Creatinine Clearance Estimated 68 mL/min (50-200); Creatinine,Serum 1.00 mg/dl (0.52-1.04); Estimated Glomerular Filt Rate 60 ml/min (>60); GFR (African American) 72 ML/MIN (>60); Globulin 3.3 g/dL (1.3-3.2); Glucose 96 mg/dl (74-100); Total Protein,Serum 7.6 g/dl (6.3-8.2)
[2025-01-21 15:28] LABS: Magnesium 1.9 mg/dl (1.6-2.3)
[2025-01-21] MEDS: 0.9 % SODIUM CHLORIDE 1000ML 1,000 ML 999 ML IV (15:29)
[2025-01-21] MEDS: METHYLPREDNISOLONE SOD SUCC 125MG VIAL 125 MG IV (15:31)
[2025-01-21] MEDS: IPRATROPIUM/ALBUTEROL 3 ML NEB 9 ML IH (15:33)
[2025-01-21] MEDS: MAGNESIUM SULFATE IN WATER 2 GM/50 ML PIGGYBACK IV (15:34)
[2025-01-21 15:36] LABS: NT Pro Brain Natriuretic Pep. 62.0 pg/mL (0-125)
[2025-01-21 15:50] LABS: Troponin I < 0.01 ng/ml (0.00-0.034)
[2025-01-21 16:01] VITALS: BP 140/83; PULSE 118; O2SAT 99
[2025-01-21 16:15] VITALS: BP 140/83; PULSE 78; O2SAT 98
--- NOTE | 2025-01-21 16:25 | PC.NURSE ---
hybrid derivatives trader states that scan is locked and begin read
[2025-01-21 16:48] LABS: D-Dimer 0.70 ug/mL (0.0-0.5)
--- NOTE | 2025-01-21 17:53 | PC.NURSE ---
mother reports that pt did have emesis after drinking 2oz of bottle.
[2025-01-21 18:19] VITALS: BP 140/84; PULSE 116; RESP 18; TEMP 36.9; O2SAT 97
== END 2025-01-21 18:22 | disposition home or self-care (01) ==
PROVIDERS: Nurse Practitioner; Emergency Provider Student in an Organized Health Care Education/Training Program; PCP Family Medicine
DX: U07.1 COVID-19 (principal); R06.02 Shortness of breath; R06.2 Wheezing
CPT/HCPCS: 71045; 80053; 82803; 83605; 83735; 83880; 84484; 85025; 85378; 87040; 93005; 96365; 96375; 99285; J2919; J3475; J7030